=== PATIENT | female | born 1955 | race Caucasian/White ===

== ENCOUNTER 2016-11-26 09:36 | Emergency (ER) | payer OTHER, MEDICARE ==
[~2016-11-26] VITALS: Ht 167.6 cm; Wt 113.4 kg
[~2016-11-26 09:36] MED LIST: ALPR0.25 PO; CYCL10TA45 PO; DICY10CA26 PO; HYDR-2890 PO; IBUP200T48 PO; PROM12.59 PO; PROP40TA5 PO; PROP80TA3 PO; PS30T PO; STR51SU12 PR
--- OUTSIDE RECORDS SUMMARY | 2016-11-26 09:42 | XMS REPORT | Continuity of Care Document ---
Author Author [facility] Organization [facility] Address Unknown Phone Unavailable Allergies Active Description Code Type Severity Reaction Onset Reported/Identified Relationship to Patient Clinical Status Yes Tetanus Vaccines Toxoid [id number] Drug Allergy Unknown N /A 04/16/2014 Medications Problems Date Dx Coded Attending Type Code Diagnosis Diagnosed By 04/16/2014 DASIA SMITH MD Ot 278.01 04/16/2014 DASIA SMITH MD Ot 305.1 04/16/2014 DASIA SMITH MD Ot 338.29 04/16/2014 DASIA SMITH MD Ot 401.9 04/16/2014 DASIA SMITH MD Ot 455.8 04/16/2014 DASIA SMITH MD Ot 564.00 04/16/2014 DASIA SMITH MD Ot 724.5 04/16/2014 DASIA SMITH MD Ot 780.60 04/16/2014 DASIA SMITH MD Ot 787.01 04/16/2014 DASIA SMITH MD Ot 789.03 04/16/2014 DASIA SMITH MD Ot 789.04 04/16/2014 DASIA SMITH MD Ot V58.69 04/16/2014 DASIA SMITH MD Ot V85.41 Procedures Results Encounters ACCT No. Visit Date/Time Discharge Status Pt. Type Provider Facility Loc./Unit Complaint [id number] 11/01/2014 11:01:00 2014 23:59:59 CLS Preadmit CINDI VAUGHN MD [facility] REHAB [id number] 04/16/2014 14:50:00 2013 17:37:00 DIS Emergency DASIA SMITH MD [facility] ER [id number] 03/16/2013 13:55:00 2012 23:59:59 [facility] Outpatient
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
--- NOTE | 2016-11-26 12:07 | Diagnostic Imaging Report ---
LUMBAR SPINE - 2-3 VIEWS COMPARISON: CT abdomen and pelvis from 04/16/2014. INDICATION: Low back pain. TECHNIQUE: AP, lateral, and coned-down lateral views of the lumbar spine. FINDINGS: Lumbar spine is normal in alignment. Specifically, no significant spondylolisthesis. Vertebral bodies are normal in height without fracture. Multilevel mild degenerative disc space narrowing with anterior marginal osteophytes. Mild degenerative facet disease at L4-L5. SI joints are normal without ankylosis or marginal erosions. IMPRESSION: 1. No acute fracture in the lumbar spine. 2. Mild lumbar spondylosis. Dictated by: Dictated on workstation # [id number]
[2016-11-26 12:18] VITALS: BP 168/70
== END 2016-11-26 12:18 | disposition home or self-care (01) ==
LOC: EDUNIT# 09:36 → ER 09:38
DX: S39.012A Strain of muscle, fascia and tendon of lower back, initial encounter (principal); E66.01 Morbid (severe) obesity due to excess calories; F17.210 Nicotine dependence, cigarettes, uncomplicated; V43.52XA Car driver injured in collision with other type car in traffic accident, initial encounter; Z79.899 Other long term (current) drug therapy; Y92.414 Local residential or business street as the place of occurrence of the external cause; Y99.8 Other external cause status
CPT/HCPCS: 72100; 99282

== ENCOUNTER → 2016-12-02 | Outpatient (CLI) | payer MEDICARE ==
[~2016-12-02] MED LIST changes: +CATHETER FLUSH 10 ML SYR IV PRN; +IOHEXOL 350 MG/ML 100 ML (OMNIPAQUE 350) VIAL IV ONE; +NS 100 ML (IVPB) BAG IV ONE
--- OUTSIDE RECORDS SUMMARY | 2016-12-02 10:05 | XMS REPORT | Continuity of Care Document ---
Author Author [facility] Organization [facility] Address Unknown Phone Unavailable Care Team Providers Care Community Recreation Coordinator Name Role Phone NO, LOCAL PHYSICIAN PCP Unavailable Insurance Providers Payer Name Policy Number Subscriber Name Relationship [employer] Choice [id number] Madhuri Coronado 19 Self / Same As Patient Advance Directives Directive Response Recorded Date/Time Advance Directives No 11/26/16 9:55am Health Care Power of Track Dresser No 11/26/16 9:55am Organ Donor No 11/26/16 9:55am Resuscitation Status Full Code 11/26/16 9:55am Chief Complaint and Reason for Visit Chief Complaint Trauma-Non Activation Reason for Visit Muscle strain Problems Active Problems Medical Problem Onset Date Status Constipation Unknown Acute Hemorrhoids Unknown Acute Muscle strain Unknown Acute Medications Current Home Medications Medication Dose Units Route Directions Days/Qty Instructions Start Date Propranolol Hcl 80 Mg 1 Each Oral Daily 04/16/14 Propranolol Hcl 40 Mg 1 Each Oral @ Noon And Pm 04/16/14 Hydrocodone Bit/Acetaminophen 1 Each 1 Each Oral As Directed as needed for Pain 04/16/14 Alprazolam 0.25 Mg 0.25 Mg Oral Bedtime 04/16/14 Ibuprofen 200 Mg 400 Mg Oral Twice A Day 04/16/14 Pseudoephedrine Hcl 30 Mg 1 Tab Oral Daily as needed for Congestion 04/16/14 Promethazine Hcl 12.5 Mg 25 Mg Oral As Needed as needed for Nausea/ Vomiting 04/16/14 Dicyclomine Hcl 10 Mg 1 Each Oral Three Times A Day And Prn 04/16/14 Cyclobenzaprine Hcl 10 Mg 10 Mg Oral Three Times A Day as needed for P 04/16/14 Starch 1 Ea 1 Ea Rectal Daily as needed for Hemorrhoids 14 04/16/14 Social History Social History Problem Response Recorded Date/Time Alcohol Use Denies Use 04/16/2014 3:01pm Recreational Drug Use No 04/16/2014 3:01pm Recent Foreign Travel No 11/26/2016 9:51am Recent Infectious Disease Exposure No 11/26/2016 9:51am Smoking Status Current Everyday Smoker 11/26/2016 9:55am Type Used Cigarettes 11/26/2016 9:55am Recent Hopitalizations No 11/26/2016 9:55am Query Response Start Date Stop Date Smoking Status Current Everyday Smoker Hospital Discharge Instructions No hospital discharge instructions. Plan of Care Discharge Date 11/26/16 12:18pm Disposition 01 HOME, SELF-CARE Condition at Discharge Stable Instructions/Education Provided Lumbar Muscle Strain Prescriptions See Medication Section Referrals NO,LOCAL PHYSICIAN - Primary Care Physician Additional Instructions/Education 1. Continue your current medications 2. Return to ER for any worsening 3.All discharge instructions reviewed with patient and/or family. Voiced understanding. Functional Status No functional status results. Allergies, Adverse Reactions, Alerts Allergen Type Severity Reaction Status Last Updated Tetanus Vaccines & Toxoid ([id number]) Allergy Unknown Active 04/16/14 Immunizations No immunization records. Vital Signs Acute Vital Signs Vital Response Date/Time Temperature (Fahrenheit) 97.4 degrees F (97.6 - 99.5) 11/26/2016 9:51am Temperature (Calculated Celsius) 36.29558 degrees C (36.4 - 37.5) 11/26/2016 9:51am Temperature Source Temporal 11/26/2016 9:51am Pulse Rate (adult) 58 bpm (60 - 90) 11/26/2016 9:51am Respiratory Rate 18 bpm (12 - 24) 11/26/2016 9:51am O2 Sat by Pulse Oximetry 99 % (88 - 100) 11/26/2016 9:51am Blood Pressure 172/75 mm Hg 11/26/2016 9:51am Blood Pressure Mean 107 mm Hg 11/26/2016 9:51am Pain Numeric Pain Scale 6 11/26/2016 9:51am Height (Feet) 5 feet 11/26/2016 9:51am Height (Inches) 6 inches 11/26/2016 9:51am Height (Calculated Centimeters) 167.462123 cm 11/26/2016 9:51am Weight (Pounds) 250 pounds 11/26/2016 9:51am Weight (Calculated Grams) 596844.094 gm 11/26/2016 9:51am Weight (Calculated Kilograms) 113.303089 kilograms 11/26/2016 9:51am Calculated BMI 40.35 11/26/2016 9:51am Capillary Refill Capillary Refill Less Than 3 Seconds 11/26/2016 9:51am Results No known relevant diagnostic tests, laboratory data and/or discharge summary. Procedures No known history of procedures. Encounters Encounter Location Arrival/Admit Date Discharge/Depart Date Attending Provider Departed Emergency Room [facility] 11/26/16 9:38am 11/26 12:18pm CHANA NORIEGA APRN Recent Diagnosis
--- NOTE | 2016-12-02 11:57 | Diagnostic Imaging Report ---
PROCEDURE: CT abdomen and pelvis with and without contrast. TECHNIQUE: Precontrast acquisitions were acquired through the abdomen and pelvis. Multiple contiguous axial images were obtained through the abdomen and pelvis after the administration of intravenous contrast. INDICATION: Hypertension. FINDINGS: The previous CT abdomen/pelvis exam of 04/16/2014 failed to show any sign of an acute abnormality of the abdomen or pelvis. The previous exam did note a low-density nodule associated with the right adrenal gland and two low-density nodules arising from the left adrenal gland. Those findings are again evident on this study and do not seem to have changed. Consequently I do feel that the adrenal nodules are benign and most likely these represent adrenal adenomas. The previous study also showed atherosclerotic disease of the abdominal aorta. The aorta is not aneurysmally dilated and there is no sign of a hemodynamically significant stenosis involving the origins of any of the major branches of the aorta including the renal arteries. The left kidney is larger than the right measuring 11.4 cm in length while the right kidney is estimated to be 9.2 cm. The discrepancy between the size of the kidneys however is no different than on the prior study. There is no solid renal mass identified and there is no sign of hydronephrosis. There is no evidence for nephrolithiasis either. The liver, spleen, pancreas, and inferior vena cava are unremarkable for an acute abnormality. As noted on the prior exam, the gallbladder is surgically absent and the common bile duct near its entry into the head of the pancreas is dilated measuring 16 mm. Most likely the dilatation of common bile duct is a sequela of the patient's prior surgical procedure. The stomach is not well distended and consequently difficult to assess. The uterus and urinary bladder are grossly unremarkable. There are few diverticula in the sigmoid colon, but there is no evidence for acute diverticulitis. The appendix is visualized and is not abnormally thickened. As noted on the prior exam there is a fair amount of fecal material throughout the ascending and transverse colon. The images through lung bases show that the lungs are clear. The calcified granuloma in the right lung base seen previously is again evident. The heart is mildly enlarged. The bone windows are unremarkable for a fracture or for a destructive lesion. IMPRESSION: 1. There is no acute abnormality of the abdomen or pelvis. 2. The low-density nodules associated with the adrenal glands seen previously are again evident and no different. Most likely these are adrenal adenomas. 3. There is atherosclerotic disease involving the aorta, but there is no evidence for an aneurysm of the aorta and there is no sign of a hemodynamically significant stenosis of the renal arteries to account for the patient's hypertension. Dictated by: Dictated on workstation # [id number]
--- NOTE | 2016-12-02 12:50 | Diagnostic Imaging Report ---
Bilateral renal ultrasound. INDICATION: Adrenal adenomas. FINDINGS: The CT abdomen/pelvis exam performed in conjunction with this study did show low-density nodules associated with both adrenal glands. These findings appeared stable when compared to the prior CT exam of 04/16/2014 and were felt to be related to adrenal adenomas. Those adenomas cannot be identified with certainty on this exam. Both kidneys were visualized. The right kidney measures 10.1 x 5.0 x 4.8 cm while the left kidney is estimated to be 12.8 x 5.6 [address] examination also suggested that the left kidney was larger than the right. There is no evidence for a solid renal mass or for hydronephrosis of either kidney. The renal cortices are normal in thickness and echogenicity. The bladder was not imaged during the course of the exam. IMPRESSION: 1. There is no evidence for a solid renal mass or for acute abnormality of either kidney. The left kidney is somewhat larger than the right. 2. The adrenal adenomas seen on the CT exam could not be identified on this study. Dictated by: Dictated on workstation # [id number]
== END ==
LOC: RAD 10:00
PROVIDERS: ATTEND Nurse Practitioner Family
DX: D35.01 Benign neoplasm of right adrenal gland (principal); D35.02 Benign neoplasm of left adrenal gland
CPT/HCPCS: 74178; 76770

== ENCOUNTER 2018-03-28 12:18 | Emergency (ER) | payer MEDICARE ==
[~2018-03-28] VITALS: Ht 167.6 cm; Wt 93.4 kg
[~2018-03-28 12:18] MED LIST changes: -CATHETER FLUSH 10 ML SYR IV PRN; -IOHEXOL 350 MG/ML 100 ML (OMNIPAQUE 350) VIAL IV ONE; -NS 100 ML (IVPB) BAG IV ONE
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
--- NOTE | 2018-03-28 13:02 | ED Cardiac General ---
History of Present Illness General Chief Complaint: Cardiac/General Problems Stated Complaint: BP ISSUES Nursing Triage Note: Patient advises her blood pressure has been off for several days. She advises that her PCP added amlodipine in addition to the patients lisinopril wednesday and since she has been expriencing changes in her pulse as well as dizziness and weakness. History of Present Illness Date Seen by Provider: Mar 28, 2018 Time Seen by Provider: 12:58 Initial Comments Patient is a 62-year-old female who presents to the emergency room with complaints of high and low blood pressures, dizziness, lightheadedness. She reports this all started after the addition of amlodipine on Wednesday to her blood pressure regimen. She is also currently taking lisinopril, Inderal, clonidine for blood pressure. She denies chest pain and shortness of breath. 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: No Associated Systoms: Headaches Allergies and Home Medications Allergies Coded Allergies: Tetanus Vaccines and Toxoid (Verified Allergy, Unknown, 04/16/14) Home Medications Alprazolam 0.25 Mg Tablet, 0.25 MG PO HS, (Reported) Cyclobenzaprine Hcl 10 Mg Tablet, 10 MG PO TID PRN for p, (Reported) Dicyclomine Hcl 10 Mg Capsule, 1 EACH PO TID PRN, (Reported) Hydrocodone Bit/Acetaminophen 1 Each Tablet, 1 EACH PO UD PRN for PAIN, ( Reported) Ibuprofen 200 Mg Tablet, 400 MG PO BID, (Reported) Promethazine Hcl 12.5 Mg Tablet, 25 MG PO PRN PRN for NAUSEA/VOMITING, (Reported ) Propranolol Hcl 80 Mg Tablet, 1 EACH PO DAILY, (Reported) Propranolol Hcl 40 Mg Tablet, 1 EACH PO @ noon and pm, (Reported) Pseudoephedrine Hcl 30 Mg Tab, 1 TAB PO DAILY PRN for CONGESTION, (Reported) Starch 1 Ea Supp, 1 EA PA DAILY PRN for HEMORRHOIDS Prescribed by: DASIA SMITH on 04/16/14 1618 Patient Home Medication List Home Medication List Reviewed: Yes Review of Systems Constitutional: see HPI; No diaphoresis, No weakness EENTM: See HPI; No Blurred Vision, No Double Vision Respiratory: See HPI; Denies Shortness of Air, Denies SOA With Exertion, Denies SOA at Rest, Denies Wheezing Cardiovascular: See HPI, Lightheadedness, Palpitations Gastrointestinal: See HPI; Denies Abdominal Pain, Denies Diarrhea, Denies Nausea, Denies Vomiting Genitourinary: See HPI; Denies Burning, Denies Discharge Musculoskeletal: see HPI; No back pain, No muscle pain Skin: see HPI; No change in color, No change in hair/nails Psychiatric/Neurological: See HPI; Denies Anxiety, Denies Depressed Endocrine: See HPI; Denies Excessive Sweating, Denies Flushing Hematologic/Lymphatic: See HPI; Denies Anemia All Other Systems Reviewed Negative Unless Noted: Yes Past Zccaezz-Lvplsl-Dwhhbp Hx Past Med/Social Hx: Reviewed Nursing Past Med/Soc Hx Patient Social History Alcohol Use: Occasionally Uses Recreational Drug Use: No Type Used: Cigarettes Recent Foreign Travel: No Contact w/Someone Who Travel: No Recent Infectious Disease Expo: No Recent Hopitalizations: No Physical Abuse: No Sexual Abuse: No Immunizations Up To Date Date of Influenza Vaccine: Aug 10, 2016 Past Medical History Surgeries: Yes (ARM SURGERY,ULNAR NERVE SURGERY L-ARM) Appendectomy, Gallbladder, Tonsillectomy Respiratory: No Cardiac: Yes Hypertension Neurological: Yes Headaches /Migraines, TIA Reproductive Disorders: No Gastrointestinal: No Musculoskeletal: Yes Chronic Back Pain Endocrine: No (MORBID OBESITY IN WEIGHT LOSS PLAN) Adrenal Disease Cancer: No Psychosocial: No Nursing Suicide Risk Score: 0 Integumentary: No Blood Disorders: No Family Medical History Reviewed Nursing Family Hx Physical Exam Vital Signs Vital Signs - First Documented 03/28/18 12:40 Pulse 67 Resp 14 B/P (MAP) 182/88 (119) Pulse Ox 98 O2 Delivery Room Air Capillary Refill : Less Than 3 Seconds General Appearance: No Apparent Distress, WD/WN HEENT: TMs Normal, Normal ENT Inspection, Pharynx Normal Neck: Full Range of Motion, Normal Inspection, Non Tender Respiratory: Chest Non Tender, Lungs Clear, Normal Breath Sounds Cardiovascular: Regular Rate, Rhythm, No Edema, No Gallop, No JVD, No Murmur; No Bradycardia Gastrointestinal: Normal Bowel Sounds, Non Tender, Soft Extremity: Normal Capillary Refill, Normal Range of Motion, No Calf Tenderness , No Pedal Edema Neurologic/Psychiatric: Alert, Oriented x3, Normal Mood/Affect Skin: Normal Color, Warm/Dry Lymphatic: No Adenopathy Progress/Results/Core Measures Results/Orders Lab Results Laboratory Tests Test 03/28/18 13:09 Range/Units White Blood Count 5.7 4.3-11.0 10^3/uL Red Blood Count 5.23 4.35-5.85 10^6/uL Hemoglobin 16.9 H 11.5-16.0 G/DL Hematocrit 49 35-52 % Mean Corpuscular Volume 93 80-99 FL Mean Corpuscular Hemoglobin 32 25-34 PG Mean Corpuscular Hemoglobin Concent 35 32-36 G/DL Red Cell Distribution Width 14.1 10.0-14.5 % Platelet Count 215 130-400 10^3/uL Mean Platelet Volume 9.8 7.4-10.4 FL Neutrophils (%) (Auto) 49 42-75 % Lymphocytes (%) (Auto) 41 12-44 % Monocytes (%) (Auto) 8 0-12 % Eosinophils (%) (Auto) 2 0-10 % Basophils (%) (Auto) 1 0-10 % Neutrophils # (Auto) 2.8 1.8-7.8 X 10^3 Lymphocytes # (Auto) 2.4 1.0-4.0 X 10^3 Monocytes # (Auto) 0.5 0.0-1.0 X 10^3 Eosinophils # (Auto) 0.1 0.0-0.3 10^3/uL Basophils # (Auto) 0.1 0.0-0.1 10^3/uL Sodium Level 140 135-145 MMOL/L Potassium Level 4.1 3.6-5.0 MMOL/L Chloride Level 108 H 98-107 MMOL/L Carbon Dioxide Level 24 21-32 MMOL/L Anion Gap 8 5-14 MMOL/L Blood Urea Nitrogen 10 7-18 MG/DL Creatinine 0.84 0.60-1.30 MG/DL Estimat Glomerular Filtration Rate > 60 BUN/Creatinine Ratio 12 Glucose Level 92 70-105 MG/DL Calcium Level 9.1 8.5-10.1 MG/DL Total Bilirubin 0.5 0.1-1.0 MG/DL Aspartate Amino Transf (AST/SGOT) 13 5-34 U/L Alanine Aminotransferase (ALT/SGPT) 11 0-55 U/L Alkaline Phosphatase 43 40-136 U/L Total Protein 6.1 L 6.4-8.2 GM/DL Albumin 3.6 3.2-4.5 GM/DL My Orders Orders - CHANA NORIEGA APRN Cbc With Automated Diff (03/28/18 12:57) Comprehensive Metabolic Panel (03/28/18 12:57) Ekg Tracing (03/28/18 12:57) Vital Signs/I&O 03/28/18 12:40 Pulse 67 Resp 14 B/P (MAP) 182/88 (119) Pulse Ox 98 O2 Delivery Room Air Blood Pressure Mean: 119 Departure Impression Primary Impression: Labile hypertension Disposition: 01 HOME, SELF-CARE Condition: Stable/Unchanged Departure-Patient Inst. Decision time for Depature: 13:52 Referrals: SARA YA (PCP) Primary Care Physician Patient Instructions: High Blood Pressure (DC) Add. Discharge Instructions: Stop your amlodipine. Take your new prescription hydrochlorothiazide as directed. Continue all your other medications as directed. Return to the emergency room for hypertension, chest pain, shortness of breath, or any other concerns as needed. follow-up with your doctor within 1 week for recheck call today for an appointment time. All discharge instructions reviewed with patient and/or family. Voiced understanding. Scripts Hydrochlorothiazide (Hydrochlorothiazide) 12.5 Mg Tablet 12.5 MG PO DAILY, #30 TAB Prov: CHANA NORIEGA APRN 03/28/18 CHANA NORIEGA APRN Mar 28, 2018 13:02
[2018-03-28 13:28] LABS: BASOPHILS # (AUTO) 0.1 10^3/uL (0.0-0.1); BASOPHILS % (AUTO) 1 % (0-10); EOSINOPHILS # (AUTO) 0.1 10^3/uL (0.0-0.3); EOSINOPHILS % (AUTO) 2 % (0-10); HEMATOCRIT 49 % (35-52); HEMOGLOBIN 16.9 G/DL (11.5-16.0); LYMPHOCYTES # (AUTO) 2.4 X 10^3 (1.0-4.0); LYMPHOCYTES % (AUTO) 41 % (12-44); MEAN CORPUSCULAR HEMOGLOBIN 32 PG (25-34); MEAN CORPUSCULAR HGB CONC 35 G/DL (32-36); MEAN CORPUSCULAR VOLUME 93 FL (80-99); MEAN PLATELET VOLUME 9.8 FL (7.4-10.4); MONOCYTES # (AUTO) 0.5 X 10^3 (0.0-1.0); MONOCYTES % (AUTO) 8 % (0-12); NEUTROPHILS # (AUTO) 2.8 X 10^3 (1.8-7.8); NEUTROPHILS % (AUTO) 49 % (42-75); PLATELET COUNT 215 10^3/uL (130-400); RED BLOOD COUNT 5.23 10^6/uL (4.35-5.85); RED CELL DISTRIBUTION WIDTH 14.1 % (10.0-14.5); WHITE BLOOD COUNT 5.7 10^3/uL (4.3-11.0)
[2018-03-28 13:45] LABS: ALANINE AMINOTRANSFERASE 11 U/L (0-55); ALBUMIN 3.6 GM/DL (3.2-4.5); ALKALINE PHOSPHATASE 43 U/L (40-136); BILIRUBIN,TOTAL 0.5 MG/DL (0.1-1.0); BUN/CREATININE RATIO 12; CALCIUM 9.1 MG/DL (8.5-10.1); CARBON DIOXIDE 24 MMOL/L (21-32); CHLORIDE 108 MMOL/L (98-107); CREATININE SERUM 0.84 MG/DL (0.60-1.30); GFR ESTIMATED > 60; GLUCOSE 92 MG/DL (70-105); POTASSIUM 4.1 MMOL/L (3.6-5.0); SODIUM 140 MMOL/L (135-145); TOTAL PROTEIN 6.1 GM/DL (6.4-8.2)
[2018-03-28] MEDS ORDERED: HYDR12.56 PO ×3 (13:58→14:02)
[2018-03-28 14:08] VITALS: BP 169/74
== END 2018-03-28 14:07 | disposition home or self-care (01) ==
LOC: EDUNIT# 12:18 → ER 12:22
DX: I10 Essential (primary) hypertension (principal); G43.909 Migraine, unspecified, not intractable, without status migrainosus; E66.01 Morbid (severe) obesity due to excess calories; Z86.39 Personal history of other endocrine, nutritional and metabolic disease; Z90.49 Acquired absence of other specified parts of digestive tract; Z90.89 Acquired absence of other organs; Z88.7 Allergy status to serum and vaccine; Z86.73 Personal history of transient ischemic attack (TIA), and cerebral infarction without residual deficits
CPT/HCPCS: 36415; 80053; 85025; 93005

== ENCOUNTER 2021-07-01 18:21 | Emergency (ER) | payer MEDICARE, OTHER ==
[~2021-07-01] VITALS: Ht 165 cm; Wt 95.0 kg
[~2021-07-01 18:21] MED LIST changes: +HYDR12.56 PO
--- NOTE | 2021-07-01 18:52 | ED Neurological Problem ---
General Chief Complaint: Neuro-Stroke Like Symptoms Stated Complaint: POSS STROKE PER PCP/TROUBLE SPEAKING Nursing Triage Note: TROUBLE WALKING AND SPEAKING X2 DAYS. STATES SHE CALLED HER DR WHO TOLD HER TO COME TO THE ER. Source: patient Exam Limitations: no limitations History of Present Illness Date Seen by Provider: Jul 01, 2021 Time Seen by Provider: 18:24 Initial Comments This 65-year-old woman presents to the emergency room via private vehicle at the direction of her primary care provider for reasons of strokelike symptoms that started on June 27. She reports a difficulty with word finding and sentence formation as well as some slightly slurred speech. She also reports difficulty walking due to weakness of her lower extremities and balance difficulties. She reports frequent falls recently. She reports a fall in which she struck her head 2 or 3 weeks ago. She also reports starting a cholesterol medication about 1 week ago. She denies any prior episodes of similar symptoms. Stroke activation was not paged since symptoms started 5 days ago. NIH stroke score was 8 on initial presentation. She does appear to have some slight left- sided facial droop and her lower extremities are weak. She denies any pain. She denies symptoms of acute infectious illness such as fever, myalgia, cough, shortness of breath, vomiting, or diarrhea. She denies drug or alcohol use. She is a former smoker. She did receive both Covid vaccinations. Allergies and Home Medications Allergies Coded Allergies: Tetanus Vaccines and Toxoid (Verified Allergy, Unknown, 04/16/14) Patient Home Medication List Home Medication List Reviewed: Yes Alprazolam (Xanax) 0.25 Mg Tablet, 0.25 MG PO HS, (Reported) Entered as Reported by: CESAR TORO on 04/16/141553 Cephalexin (Cephalexin) 500 Mg Tablet, 500 MG PO TID Prescribed by: ANTONETTE GUALLPA on 07/01/212024 Cyclobenzaprine Hcl (Flexeril Tablet) 10 Mg Tablet, 10 MG PO TID PRN for p, (Reported) Entered as Reported by: CESAR TORO on 04/16/141553 Dicyclomine Hcl (Bentyl) 10 Mg Capsule, 1 EACH PO TID PRN, (Reported) Entered as Reported by: CESAR TORO on 04/16/141553 Hydrochlorothiazide (Hydrochlorothiazide) 12.5 Mg Tablet, 12.5 MG PO DAILY Prescribed by: CHANA NORIEGA on 03/28/18 2236 Hydrochlorothiazide (Hydrochlorothiazide) 12.5 Mg Tablet, 12.5 MG PO DAILY Prescribed by: CHANA NORIEGA on 03/31/18 1024 Hydrochlorothiazide (Hydrochlorothiazide) 12.5 Mg Tablet, 12.5 MG PO DAILY Prescribed by: CHANA NORIEGA on 03/28/18 1402 Hydrocodone Bit/Acetaminophen (Hydrocodon-Acetaminophn 10-325) 1 Each Tablet, 1 EACH PO UD PRN for PAIN, (Reported) Entered as Reported by: CESAR TORO on 04/16/14 155 Ibuprofen (Ibuprofen) 200 Mg Tablet, 400 MG PO BID, (Reported) Entered as Reported by: CESAR TORO on 04/16/141553 Promethazine Hcl (Phenergan) 12.5 Mg Tablet, 25 MG PO PRN PRN for NAUSEA/VOMITING, (Reported) Entered as Reported by: CESAR TORO on 04/16/141553 Propranolol Hcl (Inderal) 80 Mg Tablet, 1 EACH PO DAILY, (Reported) Entered as Reported by: CESAR TORO on 04/16/141553 Propranolol Hcl (Inderal) 40 Mg Tablet, 1 EACH PO @ noon and pm, (Reported) Entered as Reported by: CESAR TORO on 04/16/141553 Pseudoephedrine Hcl (Sudafed) 30 Mg Tab, 1 TAB PO DAILY PRN for CONGESTION, (Reported) Entered as Reported by: CESAR TORO on 04/16/141553 Starch (Anusol Supp) 1 Ea Supp, 1 EA AK DAILY PRN for HEMORRHOIDS Prescribed by: DASIA SMITH on 04/16/14 1726 Review of Systems Review of Systems Constitutional: no symptoms reported Eyes: No Symptoms Reported Ears, Nose, Mouth, Throat: no symptoms reported Respiratory: no symptoms reported Cardiovascular: no symptoms reported Gastrointestinal: no symptoms reported Genitourinary: no symptoms reported : No Musculoskeletal: see HPI Skin: no symptoms reported Psychiatric/Neurological: See HPI Endocrine: No Symptoms Reported Hematologic/Lymphatic: No Symptoms Reported Past Fhkhihg-Tdjjio-Vvttgf Hx Patient Social History Tobacco Use?: No Smoking Status: Former Smoker Substance use?: No Alcohol Use?: No Immunizations Up To Date COVID19 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: [employer] Past Medical History Surgeries: Yes (ARM SURGERY,ULNAR NERVE SURGERY L-ARM) Appendectomy, Gallbladder, Tonsillectomy Respiratory: No Cardiac: Yes High Cholesterol, Hypertension Neurological: Yes Headaches /Migraines, TIA Reproductive Disorders: No Genitourinary: No Gastrointestinal: No Musculoskeletal: Yes Chronic Back Pain Endocrine: Yes (MORBID OBESITY IN WEIGHT LOSS PLAN) Adrenal Disease Cancer: No Psychosocial: No Integumentary: No Blood Disorders: No Physical Exam Vital Signs Vital Signs - First Documented 07/01/21 07/01/21 18:25 19:12 Temp 37.3 Pulse 61 Resp 16 B/P (MAP) 181/81 (114) Pulse Ox 96 O2 Delivery Room Air O2 Flow Rate 2.00 FiO2 97 Capillary Refill : Less Than 3 Seconds Height, Weight, BMI Height: 5'6.00" Weight: 206lbs. oz. 93.844395rc; 34.00 BMI Method:Stated General Appearance: WD/WN, no apparent distress, obese HEENT: PERRL/EOMI, normal ENT inspection, TMs normal Neck: non-tender, normal inspection Respiratory: lungs clear, normal breath sounds, no respiratory distress Cardiovascular: regular rate, rhythm, no edema, no murmur Gastrointestinal: normal bowel sounds, non tender, soft Extremities: non-tender, normal inspection, no pedal edema Neurologic/Psychiatric: alert, normal mood/affect, oriented x 3 Crainal Nerves: PERRL, abnormal speech, facial asymmetry (Subtle left-sided facial weakness) Coordination/Gait: normal finger to nose, other (Slow, deliberate gait) Motor/Sensory: sensory deficit (Identified touch on the right ankle as left arm), weak motor strength RLE, weak motor strength LLE Skin: normal color, warm/dry Stroke NIH Stroke Scale Assessment Level of Consciousness: 0=Alert (0), Level of Consciousness-Questions: 0=Answers both month/age (0), LOC Commands: 0=Performs both tasks (0), Visual [place]: 0=No visual loss (0), Facial Movement (Facial Paresis): 1=Minor paralysis (1), Motor Function-Arms Right: 0=No drift (0), Motor Function-Arms Left: 0=No drift (0), Motor Function-Legs Right: 2=Some effort/gravity (2), Motor Function-Legs Left: 2=Some effort/gravity (2), Limb Ataxia: 0=Absent (0), Sensory: 0=Normal:no loss (0), Best Language: 1=Mild to moderat aphasia (1), Dysarthria: 1=Mild to moderate loss (1), Extinction & Inattention: 1=Visual,tactile,auditory (1), Total: 8 Progress/Results/Core Measures Results/Orders Lab Results Laboratory Tests Test 07/01/21 18:08 07/01/21 18:26 07/01/21 19:05 Range/Units Total Creatine Kinase 158 29-168 U/L White Blood Count 6.9 4.3-11.0 10^3/uL Red Blood Count 4.64 3.80-5.11 10^6/uL Hemoglobin 16.2 H 11.5-16.0 g/dL Hematocrit 49 35-52 % Mean Corpuscular Volume 106 H 80-99 fL Mean Corpuscular Hemoglobin 35 H 25-34 pg Mean Corpuscular Hemoglobin Concent 33 32-36 g/dL Red Cell Distribution Width 14.3 10.0-14.5 % Platelet Count 241 130-400 10^3/uL Mean Platelet Volume 9.9 9.0-12.2 fL Immature Granulocyte % (Auto) 0 % Neutrophils (%) (Auto) 46 42-75 % Lymphocytes (%) (Auto) 41 12-44 % Monocytes (%) (Auto) 9 0-12 % Eosinophils (%) (Auto) 4 0-10 % Basophils (%) (Auto) 1 0-10 % Neutrophils # (Auto) 3.1 1.8-7.8 10^3/uL Lymphocytes # (Auto) 2.8 1.0-4.0 10^3/uL Monocytes # (Auto) 0.6 0.0-1.0 10^3/uL Eosinophils # (Auto) 0.3 0.0-0.3 10^3/uL Basophils # (Auto) 0.1 0.0-0.1 10^3/uL Immature Granulocyte # (Auto) 0.0 0.0-0.1 10^3/uL Prothrombin Time 13.2 12.2-14.7 SEC INR Comment 1.0 0.8-1.4 Activated Partial Thromboplast Time 43 H 24-35 SEC D-Dimer 1.21 H 0.00-0.49 UG/ML Sodium Level 139 135-145 MMOL/L Potassium Level 4.5 3.6-5.0 MMOL/L Chloride Level 104 98-107 MMOL/L Carbon Dioxide Level 24 21-32 MMOL/L Anion Gap 11 5-14 MMOL/L Blood Urea Nitrogen 14 7-18 MG/DL Creatinine 1.37 H 0.60-1.30 MG/DL Estimat Glomerular Filtration Rate 39 BUN/Creatinine Ratio 10 Glucose Level 90 70-105 MG/DL Glucometer 86 70-110 MG/DL Calcium Level 9.5 8.5-10.1 MG/DL Corrected Calcium 9.5 8.5-10.1 MG/DL Total Bilirubin 0.8 0.1-1.0 MG/DL Aspartate Amino Transf (AST/SGOT) 34 5-34 U/L Alanine Aminotransferase (ALT/SGPT) 27 0-55 U/L Alkaline Phosphatase 33 L 40-136 U/L Troponin I < 0.028 <0.028 NG/ML B-Type Natriuretic Peptide 30.8 <100.0 PG/ML Total Protein 7.1 6.4-8.2 GM/DL Albumin 4.0 3.2-4.5 GM/DL Urine Color YELLOW Urine Clarity CLEAR Urine pH 6.0 5-9 Urine Specific [place] 1.025 H 1.016-1.022 Urine Protein NEGATIVE NEGATIVE Urine Glucose (UA) NEGATIVE NEGATIVE Urine Ketones NEGATIVE NEGATIVE Urine Nitrite NEGATIVE NEGATIVE Urine Bilirubin NEGATIVE NEGATIVE Urine Urobilinogen 0.2 < = 1.0 MG/DL Urine Leukocyte Esterase 1+ H NEGATIVE Urine RBC (Auto) NEGATIVE NEGATIVE Urine RBC NONE /HPF Urine WBC 5-10 H /HPF Urine Squamous Epithelial Cells 5-10 /HPF Urine Crystals NONE /LPF Urine Bacteria MODERATE H /HPF Urine Casts NONE /LPF Urine Mucus NEGATIVE /LPF Urine Culture Indicated YES My Orders Orders - ANTONETTE IBRAHIM MD Cbc With Automated Diff (07/01/21 18:40) Protime With Inr (07/01/21 18:40) Partial Thromboplastin Time (07/01/21 18:40) Comprehensive Metabolic Panel (07/01/21 18:40) Fibrin Degradation Products (07/01/21 18:40) Troponin I (07/01/21 18:40) Ua Culture If Indicated (07/01/21 18:40) Chest 1 View, Ap/Pa Only (07/01/21 18:40) Ekg Tracing (07/01/21 18:40) Nothing By Mouth (07/01/21 Dinner) Ed Iv/Invasive Line Start (07/01/21 18:40) Vital Signs Stroke Patient Q15M (07/01/21 18:40) O2 (07/01/21 18:40) Monitor-Rhythm Ecg Trace Only (07/01/21 18:40) Dysphagia Screening Tool (07/01/21 18:40) Lipid Panel (07/02/21 06:00) Creatine Kinase (07/01/21 18:52) Ct Head Wo-R/O Stroke (07/01/21 19:03) Ns Iv 1000 Ml (Sodium Chloride 0.9%) (07/01/21 19:15) Urine Culture (07/01/21 19:05) BNP (07/01/21 19:38) Ceftriaxone (Rocephin) (07/01/21 20:15) Aspirin Tablet (Aspirin Tablet) (07/01/21 20:15) Medications Given in ED Current Medications Medications Dose Ordered Sig/Gail Route Start Time Stop Time Status Last Admin Dose Admin Aspirin 325 mg ONCE ONCE PO 07/01/21 20:15 07/01/21 20:16 DC 07/01/21 20:18 325 MG Ceftriaxone Sodium 1000 mg/ Sterile Water 10 ml @ 200 mls/hr ONCE ONCE IV 07/01/21 20:15 07/01/21 20:17 DC 07/01/21 20:18 200 MLS/HR Vital Signs/I&O 07/01/21 07/01/21 18:25 19:12 Temp 37.3 Pulse 61 Resp 16 B/P (MAP) 181/81 (114) Pulse Ox 96 88 O2 Delivery Room Air Nasal Cannula O2 Flow Rate 2.00 FiO2 97 Blood Pressure Mean: 114 FSBG Bedside Testing Finger Stick Blood Glucose: 86 Progress Progress Note #1: Time: 18:59 Progress Note Stroke work-up is underway. Stroke activation was not paged given symptoms have been present for 5 days. Progress Note #2: Time: 20:[address] scan was suspicious for right-sided stroke. I discussed the case with Dr. Abbasi, stroke neurologist at [facility]. She was recommending admission for completion of the stroke work-up which would include MRI of the head and MRA of the neck as well as echocardiogram. CT angiogram was not recommended due to patient's current GFR. We also discussed the bilateral lower extremity symptoms in the context of chronic back pain. Evaluation with MRI of the cervical and lumbar spine was recommended to evaluate etiology of this weakness further. Dr. Abbasi also recommended therapy with aspirin. Plan was discussed with the patient. She declines admission at this time and acknowledges the risks involved. She states she has no one to be home with her autistic son and she therefore is requesting to leave AGAINST MEDICAL ADVICE. I did stress the importance of completing this work-up in the outpatient setting and she commits to discussing this with Mackenzie Brown, her PCP in [place], [place]. Patient was stable upon discharge. See discharge instructions for further discussion. Patient did pass her dysphagia screening and was given aspirin prior to discharge. Rocephin was given for treatment of the UTI. Initial ECG Impression Date: Jul 01, 2021 Initial ECG Impression Time: 18:58 Initial ECG Rate: 62 Initial ECG Rhythm: Normal Sinus Comment Sinus rhythm with prolonged AK interval of [address] elevation or depression. No axis deviation. Diagnostic Imaging Diagonstic Imaging: CT Plain Films/CT/US/NM/MRI: head Comments CT head viewed by me and report reviewed. See report below: NAME: REUBEN TERAN [facility] REC#: [id number] PT STATUS: REG ER : 1955 PHYSICIAN: ANTONETTE IBRAHIM MD ADMIT DATE: 07/01/21/ER Draft Date of Exam:07/01/21 CT HEAD WO-R/O STROKE PROCEDURE: CT head wo r/o stroke. TECHNIQUE: Multiple contiguous axial images were obtained through the brain without the use of intravenous contrast. Auto Exposure Controls were utilized during the CT exam to meet ALARA standards for radiation dose reduction. INDICATION: Difficulty walking and speaking There is no previous study for comparison. Ventricles and sulci are within normal limits for size. There is moderate low density within the deep white matter of both hemispheres. This is somewhat greater on the right with focal lucency in the right basal ganglia which could represent nonacute lacunar infarct. There is no abnormal mass effect or shift of midline structures. There is atherosclerotic calcification present within distal internal carotid and vertebral arteries. IMPRESSION: Nonspecific white matter findings are likely due to chronic microvascular ischemia. This is somewhat asymmetric and greater on the right. Consideration could be given to MRI which has greater sensitivity in detecting early infarct. Dictated on workstation # [id number] Dict: 07/01/211926 Trans: 07/01/211931 [facility] [id number] Interpreted by: RICK PALUMBO MD Diagonstic Imaging: Xray Plain Films/CT/US/NM/MRI: chest Comments Chest x-ray viewed by me and report reviewed. See report below: NAME: REUBEN TERAN [facility] REC#: [id number] PT STATUS: REG ER : 1955 PHYSICIAN: ANTONETTE IBRAHIM MD ADMIT DATE: 07/01/21/ER Draft Date of Exam:07/01/21 CHEST 1 VIEW, AP/PA ONLY INDICATION: Cerebrovascular accident AP view of the chest reveals mild cardiomegaly. Pulmonary vascularity is unremarkable. There is no evidence of pneumothorax or consolidation. No definite pleural fluid is seen. IMPRESSION: Cardiomegaly without other acute abnormality detected. Dictated on workstation # [id number] Dict: 07/01/211900 Trans: 07/01/211912 [facility] [id number] Interpreted by: RICK PALUMBO MD Departure Impression Primary Impression: Dysarthria Additional Impressions: Dysphagia Qualified Codes: R13.10 - Dysphagia, unspecified Lower extremity weakness Qualified Codes: R29.898 - Other symptoms and signs involving the musculoskeletal system Weakness on left side of face Urinary tract infection Qualified Codes: N39.0 - Urinary tract infection, site not specified Abnormal CT scan, head Disposition: AGAINST MEDICAL ADVICE Condition: Against Medical Advice Departure-Patient Inst. Decision time for Depature: 20:11 Referrals: SARA YA (PCP) Primary Care Physician Patient Instructions: Right-Side Stroke, Urinary Tract Infections in Adults Add. Discharge Instructions: Your symptoms are suspicious for a recent stroke. After consultation with the stroke neurologist at [facility], admission to the hospital to finish out your work-up is recommended. It is imperative that you see your primary care provider as soon as possible. Further evaluation is required. It is suggested that you pursue MRI of the brain, MRA of the neck, and MRI of the cervical and lumbar spine to further evaluate your symptoms. You should also obtain an echocardiogram. These studies would be performed in the hospital if you were to stay for admission. You should also be evaluated for physical therapy, speech therapy, and occupational therapy services. Complete your antibiotic as prescribed and review urine culture results with your primary care provider after 48 hours. Take aspirin 81 mg daily until otherwise instructed by your doctor. Continue your cholesterol medication as well. Ambulate with extreme caution and use an assistive device such as a cane or walker as needed for safety. Return to the emergency room promptly if you develop any worsening of symptoms. Call with questions or concerns. All discharge instructions reviewed with patient and/or family. Voiced understanding. Scripts Cephalexin (Cephalexin) 500 Mg Tablet 500 MG PO TID, #20 TAB Prov: ANTONETTE IBRAHIM MD 07/01/21 ANTONETTE IBRAHIM MD Jul 01, 2021 18:52
[2021-07-01 18:54] LABS: BASOPHILS # (AUTO) 0.1 10^3/uL (0.0-0.1); BASOPHILS % (AUTO) 1 % (0-10); CHLORIDE 104 MMOL/L (98-107); EOSINOPHILS # (AUTO) 0.3 10^3/uL (0.0-0.3); EOSINOPHILS % (AUTO) 4 % (0-10); HEMATOCRIT 49 % (35-52); HEMOGLOBIN 16.2 g/dL (11.5-16.0); LYMPHOCYTES # (AUTO) 2.8 10^3/uL (1.0-4.0); LYMPHOCYTES % (AUTO) 41 % (12-44); MEAN CORPUSCULAR HEMOGLOBIN 35 pg (25-34); MEAN CORPUSCULAR HGB CONC 33 g/dL (32-36); MEAN CORPUSCULAR VOLUME 106 fL (80-99); MEAN PLATELET VOLUME 9.9 fL (9.0-12.2); MONOCYTES # (AUTO) 0.6 10^3/uL (0.0-1.0); MONOCYTES % (AUTO) 9 % (0-12); NEUTROPHILS # (AUTO) 3.1 10^3/uL (1.8-7.8); NEUTROPHILS % (AUTO) 46 % (42-75); PLATELET COUNT 241 10^3/uL (130-400); POTASSIUM 4.5 MMOL/L (3.6-5.0); SODIUM 139 MMOL/L (135-145); WHITE BLOOD COUNT 6.9 10^3/uL (4.3-11.0)
[2021-07-01 18:55] LABS: CALCIUM 9.5 MG/DL (8.5-10.1)
[2021-07-01 18:56] LABS: GLUCOSE 90 MG/DL (70-105); TOTAL PROTEIN 7.1 GM/DL (6.4-8.2)
[2021-07-01 18:57] LABS: CARBON DIOXIDE 24 MMOL/L (21-32)
[2021-07-01 18:58] LABS: BILIRUBIN,TOTAL 0.8 MG/DL (0.1-1.0)
[2021-07-01 19:00] LABS: ALKALINE PHOSPHATASE 33 U/L (40-136); CREATININE SERUM 1.37 MG/DL (0.60-1.30); GFR ESTIMATED 39
[2021-07-01 19:01] LABS: BUN/CREATININE RATIO 10
[2021-07-01 19:02] LABS: FIBRIN DEGRADATION PRODUCTS 1.21 UG/ML (0.00-0.49); PROTHROMBIN TIME PATIENT 13.2 SEC (12.2-14.7)
[2021-07-01 19:03] LABS: ALANINE AMINOTRANSFERASE 27 U/L (0-55)
[2021-07-01 19:11] LABS: BILIRUBIN,URINE NEGATIVE (NEGATIVE); CLARITY,URINE CLEAR; COLOR,URINE YELLOW; GLUCOSE, URINE (UA) NEGATIVE (NEGATIVE); KETONES,URINE NEGATIVE (NEGATIVE); LEUKOCYTE ESTERASE ,URINE 1+ (NEGATIVE); NITRITE,URINE NEGATIVE (NEGATIVE); PROTEIN,URINE NEGATIVE (NEGATIVE)
--- NOTE | 2021-07-01 19:14 | Diagnostic Imaging Report ---
INDICATION: Cerebrovascular accident AP view of the chest reveals mild cardiomegaly. Pulmonary vascularity is unremarkable. There is no evidence of pneumothorax or consolidation. No definite pleural fluid is seen. IMPRESSION: Cardiomegaly without other acute abnormality detected. Dictated by: Dictated on workstation # [id number]
[2021-07-01] MEDS ORDERED: NS IV 1000 ML 1,000 ML IV SCH (19:15)
[2021-07-01 19:20] LABS: BACTERIA,URINE MODERATE /HPF
--- NOTE | 2021-07-01 19:32 | Diagnostic Imaging Report ---
PROCEDURE: CT head wo r/o stroke. TECHNIQUE: Multiple contiguous axial images were obtained through the brain without the use of intravenous contrast. Auto Exposure Controls were utilized during the CT exam to meet ALARA standards for radiation dose reduction. INDICATION: Difficulty walking and speaking There is no previous study for comparison. Ventricles and sulci are within normal limits for size. There is moderate low density within the deep white matter of both hemispheres. This is somewhat greater on the right with focal lucency in the right basal ganglia which could represent nonacute lacunar infarct. There is no abnormal mass effect or shift of midline structures. There is atherosclerotic calcification present within distal internal carotid and vertebral arteries. IMPRESSION: Nonspecific white matter findings are likely due to chronic microvascular ischemia. This is somewhat asymmetric and greater on the right. Consideration could be given to MRI which has greater sensitivity in detecting early infarct. Dictated by: Dictated on workstation # [id number]
[2021-07-01] MEDS ORDERED: cefTRIAXone 1,000 MG in WATER (STERILE) FOR INJECTION 10 ML IV ONE (20:15)
[2021-07-01] MEDS ORDERED: ASPIRIN 325 MG (5 GR) TABLET PO ONE (20:15)
[2021-07-01 20:25] VITALS: BP 153/64
[2021-07-01] MEDS ORDERED: CEPH500T PO (20:25)
== END 2021-07-01 20:25 | disposition left against medical advice (07) ==
LOC: EDUNIT# 18:21 → ER 18:22
DX: R47.1 Dysarthria and anarthria (principal); R13.10 Dysphagia, unspecified; R53.1 Weakness; N39.0 Urinary tract infection, site not specified; R93.0 Abnormal findings on diagnostic imaging of skull and head, not elsewhere classified; E78.00 Pure hypercholesterolemia, unspecified; E66.01 Morbid (severe) obesity due to excess calories; I10 Essential (primary) hypertension; G89.29 Other chronic pain; M54.9 Dorsalgia, unspecified; Z68.34 Body mass index [BMI] 34.0-34.9, adult; Z87.891 Personal history of nicotine dependence; Z86.73 Personal history of transient ischemic attack (TIA), and cerebral infarction without residual deficits; Z79.891 Long term (current) use of opiate analgesic; Z79.899 Other long term (current) drug therapy
CPT/HCPCS: 36415; 70450; 71045; 80053; 81000; 82550; 82947; 83880; 84484; 85025; 85379; 85610; 85730; 87088; 93005; 93041

== ENCOUNTER 2021-07-13 09:46 | Inpatient (IN) | payer MEDICARE ==
[~2021-07-13] VITALS: Ht 167 cm; Wt 114.7 kg
[~2021-07-13 09:46] MED LIST changes: +CEPH500T PO
--- NOTE | 2021-07-13 10:14 | ED Fall/Injury ---
General Chief Complaint: Neurological Problems Stated Complaint: FALL Source: patient Exam Limitations: no limitations History of Present Illness Date Seen by Provider: Jul 13, 2021 Time Seen by Provider: 09:59 Initial Comments Patient to the ER by EMS from home with chief complaint she had a fall in her kitchen striking back of her head against a cabinetry. She says she just felt weak and tired and short of air. She is felt this way for about 2 weeks now. S he has not been tested for Covid or influenza. She did get [employer] vaccines x2 in December. She is having some chills and borderline temperatures but no fever. She did have a stroke approximately 2 weeks ago. She is not having any nausea chest pain diarrhea constipation abdominal pain. No pain in her hips or legs. No significant pain in her head. Patient had a stroke approximately 2 weeks ago and did not seek medical care at that time. She is also on Keflex presently for UTI outpatient treatment. Stewart french was seen June 27 in the ER with strokelike symptoms difficulty with word finding since formation and some slightly slurred speech. Difficulty walking doing to bilateral lower extremity weakness and balance issues. NIH was initially 8 points. Quit smoking years ago. She does have hypertension and had some slight left-sided facial droop and lower extremity weakness that day. CT suspicious for right-sided stroke. Patient declined admission at that time and went AGAINST MEDICAL ADVICE stating she had to go home and take care of her autistic son. Patient received a dose of Rocephin for UTI and was sent home on Keflex. Allergies and Home Medications Allergies Coded Allergies: Tetanus Vaccines and Toxoid (Verified Allergy, Unknown, 04/16/14) Patient Home Medication List Home Medication List Reviewed: Yes Alprazolam (Xanax) 0.25 Mg Tablet, 0.25 MG PO HS, (Reported) Entered as Reported by: CESAR TORO on 04/16/141553 Cephalexin (Cephalexin) 500 Mg Tablet, 500 MG PO TID Prescribed by: ANTONETTE GUALLPA on 07/01/212024 Cyclobenzaprine Hcl (Flexeril Tablet) 10 Mg Tablet, 10 MG PO TID PRN for p, (Reported) Entered as Reported by: CESAR TORO on 04/16/141553 Dicyclomine Hcl (Bentyl) 10 Mg Capsule, 1 EACH PO TID PRN, (Reported) Entered as Reported by: CESAR TORO on 04/16/141553 Hydrochlorothiazide (Hydrochlorothiazide) 12.5 Mg Tablet, 12.5 MG PO DAILY Prescribed by: CHANA NORIEGA on 03/28/18 2236 Hydrochlorothiazide (Hydrochlorothiazide) 12.5 Mg Tablet, 12.5 MG PO DAILY Prescribed by: CHANA NORIEGA on 03/31/18 1024 Hydrochlorothiazide (Hydrochlorothiazide) 12.5 Mg Tablet, 12.5 MG PO DAILY Prescribed by: CHANA NORIEGA on 03/28/18 1402 Hydrocodone Bit/Acetaminophen (Hydrocodon-Acetaminophn 10-325) 1 Each Tablet, 1 EACH PO UD PRN for PAIN, (Reported) Entered as Reported by: CESAR TORO on 04/16/141553 Ibuprofen (Ibuprofen) 200 Mg Tablet, 400 MG PO BID, (Reported) Entered as Reported by: CESAR TORO on 04/16/141553 Promethazine Hcl (Phenergan) 12.5 Mg Tablet, 25 MG PO PRN PRN for NAUSEA/VOMITING, (Reported) Entered as Reported by: CESAR TORO on 04/16/141553 Propranolol Hcl (Inderal) 80 Mg Tablet, 1 EACH PO DAILY, (Reported) Entered as Reported by: CESAR TORO on 04/16/141553 Propranolol Hcl (Inderal) 40 Mg Tablet, 1 EACH PO @ noon and pm, (Reported) Entered as Reported by: CESAR TORO on 04/16/141553 Pseudoephedrine Hcl (Sudafed) 30 Mg Tab, 1 TAB PO DAILY PRN for CONGESTION, (Reported) Entered as Reported by: CESAR TORO on 04/16/141553 Starch (Anusol Supp) 1 Ea Supp, 1 EA [place] DAILY PRN for HEMORRHOIDS Prescribed by: DASIA SMITH on 04/16/14 1726 Review of Systems Review of Systems Constitutional: chills, malaise, weakness Eyes: Denies Blindness, Denies Blurred Vision Ears, Nose, Mouth, Throat: denies ear pain, denies ear discharge Respiratory: No cough; short of breath Cardiovascular: No edema, No palpitations Gastrointestinal: No abdominal pain, No nausea, No vomiting Genitourinary: No discharge, No dysuria Musculoskeletal: No back pain, No joint pain Skin: No pruritus, No rash Psychiatric/Neurological: Denies Anxiety, Denies Depressed All Other Systems Reviewed Negative Unless Noted: Yes Past Yswozvh-Ypczuo-Ertvoy Hx Patient Social History Tobacco Use?: No Substance use?: No Alcohol Use?: No Pt feels they are or have been: No Immunizations Up To Date First/Initial COVID19 Vaccinat: 12/29 Second COVID19 Vaccination Thai: 12/29 COVID19 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 Surgeries: Yes (ARM SURGERY,ULNAR NERVE SURGERY L-ARM) Appendectomy, Gallbladder, Tonsillectomy Respiratory: No Cardiac: Yes High Cholesterol, Hypertension Neurological: Yes Headaches /Migraines, TIA Reproductive Disorders: No Genitourinary: No Gastrointestinal: No Musculoskeletal: Yes Chronic Back Pain Endocrine: Yes (MORBID OBESITY IN WEIGHT LOSS PLAN) Adrenal Disease Cancer: No Psychosocial: No Integumentary: No Blood Disorders: No Physical Exam Vital Signs Vital Signs - First Documented 07/13/21 07/13/21 09:52 09:54 Temp 37.2 Pulse 108 Resp 20 B/P (MAP) 123/64 (83) Pulse Ox 84 O2 Delivery Room Air O2 Flow Rate 2.00 FiO2 96 Capillary Refill : Height, Weight, BMI Height: 5'6.00" Weight: 206lbs. oz. 93.556460fa; 34.00 BMI Method:Stated General Appearance: moderate distress, obese HEENT: PERRL/EOMI, pharynx normal Neck: full range of motion, supple, normal inspection Cardiovascular: normal peripheral pulses, regular rate, rhythm Respiratory: chest non-tender, lungs clear, normal breath sounds, no respiratory distress, no accessory muscle use Gastrointestinal: normal bowel sounds, non tender, soft, no organomegaly Back: normal inspection, no vertebral tenderness Extremities: non-tender, normal inspection, normal capillary refill Neurologic/Psychiatric: no motor/sensory deficits, alert, normal mood/affect, oriented x 3 Skin: normal color, warm/dry [place] Coma Score Best Eye Response: (4) Open Spontaneously Best Verbal Response: (5) Oriented Best Motor Response: (6) Obeys Commands Annie Total: 15 Progress/Results/Core Measures Results/Orders Lab Results Laboratory Tests Test 07/13/21 09:56 07/13/21 11:30 Range/Units White Blood Count 15.5 H 4.3-11.0 10^3/uL Red Blood Count 5.03 3.80-5.11 10^6/uL Hemoglobin 17.5 H 11.5-16.0 g/dL Hematocrit 52 35-52 % Mean Corpuscular Volume 104 H 80-99 fL Mean Corpuscular Hemoglobin 35 H 25-34 pg Mean Corpuscular Hemoglobin Concent 34 32-36 g/dL Red Cell Distribution Width 14.2 10.0-14.5 % Platelet Count 241 130-400 10^3/uL Mean Platelet Volume 10.1 9.0-12.2 fL Immature Granulocyte % (Auto) 0 % Neutrophils (%) (Auto) 86 H 42-75 % Lymphocytes (%) (Auto) 9 L 12-44 % Monocytes (%) (Auto) 4 0-12 % Eosinophils (%) (Auto) 0 0-10 % Basophils (%) (Auto) 0 0-10 % Neutrophils # (Auto) 13.4 H 1.8-7.8 10^3/uL Lymphocytes # (Auto) 1.4 1.0-4.0 10^3/uL Monocytes # (Auto) 0.6 0.0-1.0 10^3/uL Eosinophils # (Auto) 0.0 0.0-0.3 10^3/uL Basophils # (Auto) 0.1 0.0-0.1 10^3/uL Immature Granulocyte # (Auto) 0.1 0.0-0.1 10^3/uL Neutrophils % (Manual) 87 % Lymphocytes % (Manual) 8 % Monocytes % (Manual) 5 % Anisocytosis SLIGHT Macrocytosis SLIGHT Prothrombin Time 13.8 12.2-14.7 SEC INR Comment 1.0 0.8-1.4 Activated Partial Thromboplast Time 43 H 24-35 SEC Blood Gas Puncture Site LT RAD Blood Gas Patient Temperature 99.1 Arterial Blood pH 7.41 7.37-7.43 Arterial Blood Partial Pressure CO2 41 35-45 MMHG Arterial Blood Partial Pressure O2 77 L 79-93 MMHG Arterial Blood HCO3 26 23-27 MMOL/L Arterial Blood Total CO2 26.7 21.0-31.0 MMOL/L Arterial Blood Oxygen Saturation 95 94-100 % Arterial Blood Base Excess 1.4 -2.5-2.5 MMOL/L Tristian Test YES-POS Blood Gas Ventilator Setting NO Blood Gas Inspired Oxygen 3 L Sodium Level 138 135-145 MMOL/L Potassium Level 4.5 3.6-5.0 MMOL/L Chloride Level 100 98-107 MMOL/L Carbon Dioxide Level 24 21-32 MMOL/L Anion Gap 14 5-14 MMOL/L Blood Urea Nitrogen 14 7-18 MG/DL Creatinine 1.60 H 0.60-1.30 MG/DL Estimat Glomerular Filtration Rate 32 BUN/Creatinine Ratio 9 Glucose Level 174 H 70-105 MG/DL Lactic Acid Level 3.37 *H 0.50-2.00 MMOL/L Calcium Level 10.0 8.5-10.1 MG/DL Corrected Calcium 10.1 8.5-10.1 MG/DL Total Bilirubin 1.1 H 0.1-1.0 MG/DL Aspartate Amino Transf (AST/SGOT) 122 H 5-34 U/L Alanine Aminotransferase (ALT/SGPT) 36 0-55 U/L Alkaline Phosphatase 40 40-136 U/L Troponin I 5.698 *H <0.028 NG/ML Total Protein 7.1 6.4-8.2 GM/DL Albumin 3.9 3.2-4.5 GM/DL Influenza Type A (RT-PCR) Not Detected Not Detecte Influenza Type B (RT-PCR) Not Detected Not Detecte SARS-CoV-2 RNA (RT-PCR) Not Detected Not Detecte Urine Color ORANGE Urine Clarity CLEAR Urine pH 6.5 5-9 Urine Specific [place] 1.010 L 1.016-1.022 Urine Protein 2+ H NEGATIVE Urine Glucose (UA) NEGATIVE NEGATIVE Urine Ketones NEGATIVE NEGATIVE Urine Nitrite NEGATIVE NEGATIVE Urine Bilirubin NEGATIVE NEGATIVE Urine Urobilinogen 0.2 < = 1.0 MG/DL Urine Leukocyte Esterase NEGATIVE NEGATIVE Urine RBC (Auto) 3+ H NEGATIVE Urine RBC 2-5 H /HPF Urine WBC 2-5 /HPF Urine Squamous Epithelial Cells 2-5 /HPF Urine Crystals PRESENT H /LPF Urine Amorphous Sediment FEW GARY URATES H /LPF Urine Bacteria NEGATIVE /HPF Urine Casts PRESENT /LPF Urine Granular Casts RARE /LPF Urine Mucus NEGATIVE /LPF Urine Culture Indicated NO My Orders Orders - LULA MURPHY Ct Head/Cervical Spine Wo (07/13/21 10:05) Cbc With Automated Diff (07/13/21 10:05) Comprehensive Metabolic Panel (07/13/21 10:05) Blood Culture (07/13/21 10:05) Sputum Culture (07/13/21 10:05) Urinalysis (07/13/21 10:05) Urine Culture (07/13/21 10:05) Protime With Inr (07/13/21 10:05) Partial Thromboplastin Time (07/13/21 10:05) Chest 1 View, Ap/Pa Only (07/13/21 10:05) Ed Iv/Invasive Line Start (07/13/21 10:05) Ed Iv/Invasive Line Start (07/13/21 10:05) Troponin I (07/13/21 10:05) Vital Signs Adult Sepsis Patie Q15M (07/13/21 10:05) O2 (07/13/21 10:05) Remove Rings In Anticipation O (07/13/21 10:05) Lactic Acid Analyzer (07/13/21 10:05) Influenza A And B By Pcr (07/13/21 10:05) Ns Iv 1000 Ml (Sodium Chloride 0.9%) (07/13/21 10:15) Ceftriaxone (Rocephin) (07/13/21 10:15) Azithromycin Injection (Zithromax Inject (07/13/21 10:15) Ed Iv/Invasive Line Start (07/13/21 10:05) Ns Iv 500 Ml (Sodium Chloride 0.9%) (07/13/21 10:15) Covid 19 Inhouse Test (07/13/21 10:05) Arterial Blood Gas (07/13/21 10:05) Manual Differential (07/13/21 09:56) Arterial Blood Gas (07/13/21 10:17) Catheter(Urinary) Insert & Ass 03,15 (07/13/21 11:26) Ed Iv/Invasive Line Start (07/13/21 11:33) Ns Iv 1000 Ml (Sodium Chloride 0.9%) (07/13/21 11:45) Aspirin Chewable Tablet (Baby Aspirin Ch (07/13/21 11:45) Medications Given in ED Current Medications Medications Dose Ordered Sig/Gail Route Start Time Stop Time Status Last Admin Dose Admin Aspirin 324 mg ONCE ONCE PO 07/13/21 11:45 07/13/21 11:46 DC 10/3/21 11:51 324 MG Azithromycin 500 mg/Sodium Chloride 255 ml @ 250 mls/hr ONCE ONCE IV 07/13/21 10:15 07/13/21 11:16 DC 07/13/21 10:46 250 MLS/HR Ceftriaxone Sodium 1000 mg/ Sterile Water 10 ml @ 200 mls/hr ONCE ONCE IV 07/13/21 10:15 07/13/21 10:17 DC 07/13/21 10:42 200 MLS/HR Sodium Chloride 500 ml @ 0 mls/hr Q0M ONCE IV 07/13/21 10:15 07/13/21 10:16 DC 07/13/21 10:48 500 MLS/HR Vital Signs/I&O 07/13/21 07/13/21 07/13/21 09:52 09:52 09:54 Temp 37.2 37.2 Pulse 108 108 Resp 20 22 B/P (MAP) 123/64 (83) 123/64 Pulse Ox 84 96 O2 Delivery Room Air Room Air Nasal Cannula O2 Flow Rate 2.00 FiO2 96 Progress Progress Note #1: Time: 10:[address] of the head and C-spine without IV contrast, 1500 cc would be greater than 20 mL/kg based on ideal body weight of 162 pounds. Rocephin and azithromycin as I suspect since she has hypoxic when she enters the ER 86% on room air that a pneumonia may be the cause of her symptoms. We will swab her for Covid and influenza and get a chest x-ray. Sepsis work-up Progress Note #2: Time: 11:29 Progress Note Severe sepsis from UTI or possibly pneumonia with Rocephin and azithromycin coverage. She has received her 20 mL/kg fluid bolus and maintains a good blood pressure. We will go ahead and order another liter of fluids bring her up over 30 mL/kg. Nursing attempted to get the patient up on the commode to have a bowel movement and the patient became weight according to the nurse and took 3 people to get her back into bed. A Baron catheter was placed for safety as well as since she had a fall and weakness. Her troponin is significantly elevated and I suspect NSTEMI. Creatinine is moderately elevated but not enough to explain the troponin. We will give her aspirin and if her CT is clear we will discuss blood thinners with cardiology Initial ECG Impression Date: Jul 13, 2021 Initial ECG Impression Time: 11:35 Initial ECG Rate: 101 Initial ECG Rhythm: S.Tach Initial ECG Intervals: QT (475) Initial ECG Impression: Normal, Nonspecific Changes Initial ECG Comparisson: Unchanged Comment Sinus tachycardia without clinically relevant ST elevation or depression. Diagnostic Imaging Diagonstic Imaging: Xray Plain Films/CT/US/NM/MRI: chest Comments [facility], [place] NAME: REUBEN TERAN [facility] REC#: [id number] PT STATUS: REG ER : 1955 PHYSICIAN: LULA MURPHY MD ADMIT DATE: 07/13/21/ER Draft Date of Exam:07/13/21 CHEST 1 VIEW, AP/PA ONLY INDICATION: Sepsis COMPARISON: 07/01/2021 TECHNIQUE: Single radiograph of the chest dated 07/13/2021. FINDINGS: The cardiac silhouette is enlarged, similar to the prior examination. Mild central pulmonary vascular congestion. Slightly increased prominence of the pulmonary interstitium is noted without additional focal pulmonary consolidation. No significant pleural effusion. No pneumothorax. No acute osseous abnormality IMPRESSION: Constellation of findings is suggestive of congestive heart failure/volume overload with minimal interstitial edema without significant pleural effusion. Dictated on workstation # [id number] Dict: 07/13/21 1217 Trans: 07/13/21 1220 CVB [id number] Interpreted by: ARIADNA RUIZ MD Electronically signed by: Reviewed: Reviewed by Me Diagonstic Imaging: CT Plain Films/CT/US/NM/MRI: c-spine, head Comments [facility] [place] [place] NAME: REUBEN TERAN [facility] REC#: [id number] PT STATUS: REG ER : 1955 PHYSICIAN: LULA MURPHY MD ADMIT DATE: 07/13/21/ER Draft Date of Exam:07/13/21 CT HEAD/CERVICAL SPINE WO PROCEDURE: CT head and CT cervical spine without contrast. TECHNIQUE: Multiple contiguous axial images were obtained through the brain and cervical spine without the use of intravenous contrast. Sagittal and coronal reformations through the cervical spine were then performed. Auto Exposure Controls were utilized during the CT exam to meet ALARA standards for radiation dose reduction. Indication: Fall with head and neck pain. Struck back of head. Comparison: Head CT 07/01/2021. Discussion: Head: White matter hypoattenuation is nonspecific though not greater than expected for age related chronic small vessel ischemic disease, stable. Chronic lacunar infarcts within the bilateral basal ganglia are stable. No acute intracranial hemorrhage, mass, midline shift, hydrocephalus. The orbits, sinuses, mastoid air cells, and calvarium are unremarkable. Cervical spine: Mild to moderate degenerative disc disease facet arthropathies noted diffusely throughout the cervical spine. There is no acute fracture or subluxation identified. Atherosclerotic plaques noted within the bilateral carotid bifurcations which are retropharyngeal in location. Impression: 1. Senescent changes as described. No acute intracranial abnormality identified. Stable head CT. 2. No acute abnormality within the cervical spine. Dictated on workstation # [id number] Dict: 07/13/21 1221 Trans: 07/13/21 1230 [facility] [id number] Interpreted by: SHAY VASQUEZ MD Electronically signed by: Reviewed: Reviewed by Me Focused Exam Lactate Level 07/13/21 09:56: Lactic Acid Level 3.37*H Lactic Acid Level Laboratory Tests Test 07/13/21 09:56 Lactic Acid Level 3.37 MMOL/L (0.50-2.00) *H Departure Impression Primary Impression: Fall Qualified Codes: W19.XXXA - Unspecified fall, initial encounter Additional Impressions: UTI (urinary tract infection) Qualified Codes: N30.00 - Acute cystitis without hematuria Severe sepsis NSTEMI (non-ST elevated myocardial infarction) Disposition: ADMITTED INPATIENT Condition: Stable Admissions Decision to Admit Reason: Admit from ER (General) LULA MURPHY Jul 13, 2021 10:14
[2021-07-13] MEDS ORDERED: cefTRIAXone 1,000 MG in WATER (STERILE) FOR INJECTION 10 ML IV ONE (10:15)
[2021-07-13] MEDS ORDERED: NS IV 1000 ML 1,000 ML IV SCH ×2 (10:15→11:45)
[2021-07-13] MEDS ORDERED: NS IV 500 ML 500 ML IV ONE (10:15)
[2021-07-13] MEDS ORDERED: AZITHROMYCIN INJECTION 500 MG in NS (IVPB) 250 ML IV ONE (10:15)
[2021-07-13 10:21] LABS: ABG BASE EXCESS 1.4 MMOL/L (-2.5-2.5); ABG OXYGEN SATURATION 95 % (94-100); ABG PCO2 41 MMHG (35-45); ABG PH 7.41 (7.37-7.43); ABG PO2 77 MMHG (79-93); ABG TCO2 26.7 MMOL/L (21.0-31.0); ALLENS TEST YES-POS; INSPIRED O2 3 L; PATIENT TEMP 99.1; VENTILATOR NO
[2021-07-13 10:24] LABS: BASOPHILS # (AUTO) 0.1 10^3/uL (0.0-0.1); BASOPHILS % (AUTO) 0 % (0-10); EOSINOPHILS % (AUTO) 0 % (0-10); HEMATOCRIT 52 % (35-52); HEMOGLOBIN 17.5 g/dL (11.5-16.0); LYMPHOCYTES # (AUTO) 1.4 10^3/uL (1.0-4.0); LYMPHOCYTES % (AUTO) 9 % (12-44); MEAN CORPUSCULAR HEMOGLOBIN 35 pg (25-34); MEAN CORPUSCULAR HGB CONC 34 g/dL (32-36); MEAN CORPUSCULAR VOLUME 104 fL (80-99); MEAN PLATELET VOLUME 10.1 fL (9.0-12.2); MONOCYTES # (AUTO) 0.6 10^3/uL (0.0-1.0); MONOCYTES % (AUTO) 4 % (0-12); NEUTROPHILS # (AUTO) 13.4 10^3/uL (1.8-7.8); NEUTROPHILS % (AUTO) 86 % (42-75); PLATELET COUNT 241 10^3/uL (130-400); WHITE BLOOD COUNT 15.5 10^3/uL (4.3-11.0)
[2021-07-13 10:35] LABS: ALBUMIN 3.9 GM/DL (3.2-4.5); POTASSIUM 4.5 MMOL/L (3.6-5.0); PROTHROMBIN TIME PATIENT 13.8 SEC (12.2-14.7)
[2021-07-13 10:38] LABS: TOTAL PROTEIN 7.1 GM/DL (6.4-8.2)
[2021-07-13 10:40] LABS: BILIRUBIN,TOTAL 1.1 MG/DL (0.1-1.0)
[2021-07-13 10:41] LABS: CREATININE SERUM 1.6 MG/DL (0.60-1.30)
[2021-07-13 11:01] LABS: ANISOCYTOSIS SLIGHT; LYMPHOCYTES % (MANUAL) 8 %; MONOCYTES % (MANUAL) 5 %; NEUTROPHILS % (MANUAL) 87 %
[2021-07-13] MEDS ORDERED: ASPIRIN 81 MG CHEW (CHILDREN'S ASA) PO ONE (11:45)
[2021-07-13 11:48] LABS: BILIRUBIN,URINE NEGATIVE (NEGATIVE); CLARITY,URINE CLEAR; COLOR,URINE ORANGE; GLUCOSE, URINE (UA) NEGATIVE (NEGATIVE); KETONES,URINE NEGATIVE (NEGATIVE); LEUKOCYTE ESTERASE ,URINE NEGATIVE (NEGATIVE); NITRITE,URINE NEGATIVE (NEGATIVE); PH,URINE 6.5 (5-9); PROTEIN,URINE 2+ (NEGATIVE)
[2021-07-13 11:56] LABS: AMORPHOUS SEDIMENT,UR FEW AMOR URATES /LPF; BACTERIA,URINE NEGATIVE /HPF; GRANULAR CASTS,URINE RARE /LPF
--- NOTE | 2021-07-13 12:20 | Diagnostic Imaging Report ---
INDICATION: Sepsis COMPARISON: 07/01/2021 TECHNIQUE: Single radiograph of the chest dated 07/13/2021. FINDINGS: The cardiac silhouette is enlarged, similar to the prior examination. Mild central pulmonary vascular congestion. Slightly increased prominence of the pulmonary interstitium is noted without additional focal pulmonary consolidation. No significant pleural effusion. No pneumothorax. No acute osseous abnormality IMPRESSION: Constellation of findings is suggestive of congestive heart failure/volume overload with minimal interstitial edema without significant pleural effusion. Dictated by: Dictated on workstation # [id number]
--- NOTE | 2021-07-13 12:30 | Diagnostic Imaging Report ---
PROCEDURE: CT head and CT cervical spine without contrast. TECHNIQUE: Multiple contiguous axial images were obtained through the brain and cervical spine without the use of intravenous contrast. Sagittal and coronal reformations through the cervical spine were then performed. Auto Exposure Controls were utilized during the CT exam to meet ALARA standards for radiation dose reduction. Indication: Fall with head and neck pain. Struck back of head. Comparison: Head CT 07/01/2021. Discussion: Head: White matter hypoattenuation is nonspecific though not greater than expected for age related chronic small vessel ischemic disease, stable. Chronic lacunar infarcts within the bilateral basal ganglia are stable. No acute intracranial hemorrhage, mass, midline shift, hydrocephalus. The orbits, sinuses, mastoid air cells, and calvarium are unremarkable. Cervical spine: Mild to moderate degenerative disc disease facet arthropathies noted diffusely throughout the cervical spine. There is no acute fracture or subluxation identified. Atherosclerotic plaques noted within the bilateral carotid bifurcations which are retropharyngeal in location. Impression: 1. Senescent changes as described. No acute intracranial abnormality identified. Stable head CT. 2. No acute abnormality within the cervical spine. Dictated by: Dictated on workstation # [id number]
[2021-07-13] MEDS ORDERED: ENOXAPARIN 60 MG/0.6 ML (LOVENOX) SYR SC ONE ×2 (13:45)
[2021-07-13] MEDS ORDERED: CLOPIDOGREL 75 MG (PLAVIX) TABLET PO ONE (13:45)
[2021-07-13] MEDS ORDERED: ACETAMINOPHEN 650 MG SUPP (TYLENOL) PR PRN (15:30)
[2021-07-13] MEDS: LACTATED RINGERS 1,000 ML IV SCH ×2 (15:39→21:08)
[2021-07-13] MEDS ORDERED: morphine INJ 4 MG/ML 1 ML (VIAL/SYRINGE) IV PRN (15:45)
[2021-07-13] MEDS ORDERED: NITROGLYCERIN 0.4 MG SL TABS BTL 25'S SL PRN (15:45)
[2021-07-13 16:06] VITALS: BP 127/79
[2021-07-13] MEDS: MICONAZOLE 2% POWDER (DESENEX AF) 90 GM TOP SCH ×2 (16:27→21:09)
[2021-07-13 20:00] VITALS: BP 131/73
[2021-07-14] VITALS (7 sets, daily range): BP systolic 112–144; BP diastolic 51–87
[2021-07-14] MEDS: LACTATED RINGERS 1,000 ML IV SCH (04:50)
[2021-07-14] MEDS: ENOXAPARIN 300 MG/3 ML (LOVENOX) MULTI-DOSE VIAL SQ SCH ×2 (04:50→14:21)
[2021-07-14 05:29] LABS: BASOPHILS % (AUTO) 0 % (0-10); EOSINOPHILS % (AUTO) 0 % (0-10); HEMATOCRIT 44 % (35-52); HEMOGLOBIN 14.6 g/dL (11.5-16.0); LYMPHOCYTES # (AUTO) 1.7 10^3/uL (1.0-4.0); LYMPHOCYTES % (AUTO) 15 % (12-44); MEAN CORPUSCULAR HEMOGLOBIN 35 pg (25-34); MEAN CORPUSCULAR HGB CONC 33 g/dL (32-36); MEAN CORPUSCULAR VOLUME 105 fL (80-99); MONOCYTES # (AUTO) 0.8 10^3/uL (0.0-1.0); MONOCYTES % (AUTO) 6 % (0-12); NEUTROPHILS # (AUTO) 9.2 10^3/uL (1.8-7.8); NEUTROPHILS % (AUTO) 78 % (42-75); PLATELET COUNT 196 10^3/uL (130-400); WHITE BLOOD COUNT 11.8 10^3/uL (4.3-11.0)
[2021-07-14 05:38] LABS: POTASSIUM 4.1 MMOL/L (3.6-5.0)
[2021-07-14 05:39] LABS: CALCIUM 8.7 MG/DL (8.5-10.1)
[2021-07-14 05:41] LABS: TRIGLYCERIDES 140 MG/DL (<150); VLDL CHOLESTEROL 28 MG/DL (5-40)
[2021-07-14 05:43] LABS: CREATININE SERUM 1.02 MG/DL (0.60-1.30)
[2021-07-14 05:46] LABS: CHOLESTEROL 109 MG/DL (< 200); HDL CHOLESTEROL 32 MG/DL (40-60)
--- NOTE | 2021-07-14 06:32 | Diagnostic Imaging Report ---
Reason for examination: Respiratory failure with hypoxemia. Upright AP portable chest was obtained and compared to 07/13/2021. Cardiomediastinal silhouette is within normal limits. No mediastinal widening. No effusions, infiltrates or pneumothorax. No acute osseous abnormality. IMPRESSION: 1. No acute findings in the chest. Dictated by: Dictated on workstation # [id number]
--- NOTE | 2021-07-14 08:53 | Consultation-Cardiology ---
HPI-Cardiology Cardiology Consultation: Date of Consultation 07/14/21 Time Seen by a Provider: 08:30 Date of Admission 07-13-21 Attending Physician Keke Morales MD Admitting Physician No,Local Physician Consulting Physician Karson Rodriguez MD HPI: Chief Complaint: Syncope Ms. Amos is a 66 yr old female admitted to [facility] from the ED with syncopal episode. She reports she was sweeping her floor yesterday and passed out. She reports she came to when she hit the floor. No loss of bowel or bladder control. She denies any c/o CP, SOB or palpitations prior to the episode. She reports chronic palpitations which she has had for 18 yrs and is on propranolol. She reports she had a similar episode 2 weeks ago and was told she had a stroke at that time with left sided upper and lower extremity weakness and slurring of words which has persisted. She reports she refused admission to the hospital at that time. She reports chronic back pain for which she takes oxycodone at home and has been taking it for the last 18 yrs. She denies any fever or chills. She reports frequent diarrhea. She states she wants to go home. Review of Systems-Cardiology Review of Systems Constitutional: No chills, No fever; malaise Eyes: No vision change Ears/Nose/Throat: No epistaxis, No recent hearing loss Respiratory: As described under HPI Cardiovascular: As described under HPI Gastrointestinal: diarrhea; No nausea, No vomiting Genitourinary: No dysuria, No hematuria Musculoskeletal: back pain Skin: No rash on exposed areas, No ulcerations on exposed areas Psychiatric/Neurological: As described under HPI, syncope Hematologic: No bleeding abnormalities All Other Systems Reviewed Negative Unless Noted: Yes VJS-Wradkq-Yezfyh Hx Patient Social History Smoking Status: Former Smoker Have you traveled recently?: No Alcohol Use?: No Pt feels they are or have been: No Immunizations Up To Date Date of Influenza Vaccine: Aug 10, 2016 Past Medical History PMH As described under Assessment. Family Medical History Family Medical History: She reports her mother had strokes and her father had CAD. Allergies and Home Medications Allergies Coded Allergies: morphine (Verified Allergy, Severe, Angioedema, 07/14/21) Tetanus Vaccines and Toxoid (Verified Allergy, Unknown, 04/16/14) Patient Home Medication List Aspirin (Aspirin EC) 81 Mg Tablet.dr, 243 MG PO DAILY, (Reported) Entered as Reported by: RICHA MARSHALL on 07/14/211117 Last Action: Held Cephalexin (Cephalexin) 500 Mg Capsule, 500 MG PO TID, (Reported) Entered as Reported by: RICHA MARSHALL on 07/14/211117 Last Action: Held Cholecalciferol (Vitamin D3) (Vitamin D3) 1,250 Mcg Capsule, 1,250 MCG PO WED, (Reported) Entered as Reported by: RICHA MARSHALL on 07/14/211117 Last Action: Converted Oxycodone HCl (Oxycodone HCl) 10 Mg Tablet, 10 MG PO QID PRN for PAIN-SEVERE (8- 10), (Reported) Entered as Reported by: RICHA MARSHALL on 07/14/211117 Last Action: Converted Propranolol HCl (Propranolol HCl) 10 Mg Tablet, 5 MG PO BID, (Reported) Entered as Reported by: RICHA MARSHALL on 07/14/211117 Last Action: Held Discontinued Medications Alprazolam (Xanax) 0.25 Mg Tablet, 0.25 MG PO HS, (Reported) Discontinued Reason: No Longer Taking Entered as Reported by: CESAR TORO on 04/16/141553 Last Action: Discontinued Cephalexin (Cephalexin) 500 Mg Tablet, 500 MG PO TID Discontinued Reason: No Longer Taking Prescribed by: ANTONETTE GUALLPA on 07/01/212024 Last Action: Discontinued Cyclobenzaprine Hcl (Flexeril Tablet) 10 Mg Tablet, 10 MG PO TID PRN for p, (Reported) Discontinued Reason: No Longer Taking Entered as Reported by: CESAR TORO on 04/16/141553 Last Action: Discontinued Dicyclomine Hcl (Bentyl) 10 Mg Capsule, 1 EACH PO TID PRN, (Reported) Discontinued Reason: No Longer Taking Entered as Reported by: CESAR TORO on 04/16/141553 Last Action: Discontinued Hydrochlorothiazide (Hydrochlorothiazide) 12.5 Mg Tablet, 12.5 MG PO DAILY Discontinued Reason: No Longer Taking Prescribed by: CHANA NORIEGA on 03/28/18 823 Last Action: Discontinued Hydrochlorothiazide (Hydrochlorothiazide) 12.5 Mg Tablet, 12.5 MG PO DAILY Discontinued Reason: Duplicate Order Prescribed by: CHANA NORIEGA on 03/31/18 1024 Last Action: Discontinued Hydrochlorothiazide (Hydrochlorothiazide) 12.5 Mg Tablet, 12.5 MG PO DAILY Discontinued Reason: Duplicate Order Prescribed by: CHANA NORIEGA on 03/28/18 1402 Last Action: Discontinued Hydrocodone Bit/Acetaminophen (Hydrocodon-Acetaminophn 10-325) 1 Each Tablet, 1 EACH PO UD PRN for PAIN, (Reported) Discontinued Reason: No Longer Taking Entered as Reported by: CESAR TORO on 04/16/141553 Last Action: Discontinued Ibuprofen (Ibuprofen) 200 Mg Tablet, 400 MG PO BID, (Reported) Discontinued Reason: No Longer Taking Entered as Reported by: CESAR TORO on 04/16/141553 Last Action: Discontinued Promethazine Hcl (Phenergan) 12.5 Mg Tablet, 25 MG PO PRN PRN for NAUSEA/VOMITING, (Reported) Discontinued Reason: No Longer Taking Entered as Reported by: CESAR TORO on 04/16/141553 Last Action: Discontinued Propranolol Hcl (Inderal) 80 Mg Tablet, 1 EACH PO DAILY, (Reported) Discontinued Reason: No Longer Taking Entered as Reported by: CESAR TORO on 04/16/141553 Last Action: Discontinued Propranolol Hcl (Inderal) 40 Mg Tablet, 1 EACH PO @ noon and pm, (Reported) Discontinued Reason: No Longer Taking Entered as Reported by: CESAR TORO on 04/16/141553 Last Action: Discontinued Pseudoephedrine Hcl (Sudafed) 30 Mg Tab, 1 TAB PO DAILY PRN for CONGESTION, (Reported) Discontinued Reason: No Longer Taking Entered as Reported by: CESAR TORO on 04/16/141553 Last Action: Discontinued Starch (Anusol Supp) 1 Ea Supp, 1 EA MD DAILY PRN for HEMORRHOIDS Discontinued Reason: No Longer Taking Prescribed by: DASIA SMITH on 04/16/14 1726 Last Action: Discontinued Physical Exam-Cardiology Physical Exam Vital Signs/I&O 07/15/21 07/16/21 07/16/21 07/16/21 23:32 01:00 04:00 06:36 Temp 36.8 36.5 Pulse 72 67 73 Resp 18 18 B/P (MAP) 128/61 (83) 136/71 (92) Pulse Ox 96 97 O2 Delivery Nasal Cannula Nasal Cannula Nasal Cannula O2 Flow Rate 2.00 2.00 2.00 07/16/21 08:00 Temp 36.2 Pulse 64 Resp 14 B/P (MAP) 132/68 (89) Pulse Ox 100 O2 Delivery Nasal Cannula O2 Flow Rate 2.00 07/16/21 00:00 Intake Total 100 ml Output Total 340 ml Balance -240 ml Capillary Refill : Less Than 3 Seconds Constitutional: AAO x 3, well-developed, well-nourished HEENT: PERRL, hearing is well preserved Neck: No carotid bruit; carotid pulses are 2 + bilaterally Respiratory: No accessory muscle use, No respiratory distress; chest expansion is symmetric, chest is bilaterally symmetric, lungs clear to auscultation Cardiovascular: regular rate-rhythm; No JVD; S1 and S2, systolic murmur Gastrointestinal: tender (RLQ and LLQ discomfort with palpation), soft, audible bowel sounds Extremities: no lower extremity edema bilateral Neurologic/Psychiatric: other (slurred speech; LUE and LLE 4/5) Skin: No rash on exposed areas, No ulcerations on exposed areas Data Review Labs Laboratory Tests 07/15/21 14:16: Coronavirus (COVID-19)(PCR) Negative Microbiology 07/13/21 Urine Culture - Final, Complete NO GROWTH 07/13/21 Blood Culture - Preliminary, Resulted No growth Radiology NAME: REUBEN AMOS [facility] REC#: [id number] PT STATUS: ADM IN : 1955 PHYSICIAN: LULA MURPHY MD ADMIT DATE: 07/13/21/[facility] Signed Date of Exam:07/13/21 CT HEAD/CERVICAL SPINE WO PROCEDURE: CT head and CT cervical spine without contrast. TECHNIQUE: Multiple contiguous axial images were obtained through the brain and cervical spine without the use of intravenous contrast. Sagittal and coronal reformations through the cervical spine were then performed. Auto Exposure Controls were utilized during the CT exam to meet ALARA standards for radiation dose reduction. Indication: Fall with head and neck pain. Struck back of head. Comparison: Head CT 07/01/2021. Discussion: Head: White matter hypoattenuation is nonspecific though not greater than expected for age related chronic small vessel ischemic disease, stable. Chronic lacunar infarcts within the bilateral basal ganglia are stable. No acute intracranial hemorrhage, mass, midline shift, hydrocephalus. The orbits, sinuses, mastoid air cells, and calvarium are unremarkable. Cervical spine: Mild to moderate degenerative disc disease facet arthropathies noted diffusely throughout the cervical spine. There is no acute fracture or subluxation identified. Atherosclerotic plaques noted within the bilateral carotid bifurcations which are retropharyngeal in location. Impression: 1. Senescent changes as described. No acute intracranial abnormality identified. Stable head CT. 2. No acute abnormality within the cervical spine. Dictated by: Dictated on workstation # [id number] Dict: 07/13/21 1221 Trans: 07/13/21 1602 CVB [id number] Interpreted by: SHAY VASQUEZ MD Electronically signed by: SHAY VASQUEZ MD 07/13/211601 NAME: REUBEN AMOS [facility] REC#: [id number] PT STATUS: ADM IN : 1955 PHYSICIAN: KEKE MORALES MD ADMIT DATE: 07/13/21/[facility] Signed Date of Exam:07/14/21 CHEST 1 VIEW, AP/PA ONLY Reason for examination: Respiratory failure with hypoxemia. Upright AP portable chest was obtained and compared to 07/13/2021. Cardiomediastinal silhouette is within normal limits. No mediastinal widening. No effusions, infiltrates or pneumothorax. No acute osseous abnormality. IMPRESSION: 1. No acute findings in the chest. Dictated by: Dictated on workstation # [id number] Dict: 07/14/21 06 Trans: 07/14/21 08 NAVIN [id number] Interpreted by: BISHNU DAUGHERTY MD Electronically signed by: BISHNU DAUGHERTY MD 07/14/21 08 ECG Impression ECG Initial ECG Rhythm: Normal Sinus A/P-Cardiology Assessment/Admission Diagnosis NSTEMI Syncope - undetermined etiology CVA approx 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 upper and lower extremity weakness with slurred speech Palpitations - undetermined etiology Chronic back pain - chronic opiate use Diarrhea - management per medical services Family h/o CAD/CVA - Mother and father Discussion and Recomendations NSTEMI - currently without c/o CP - advise cardiac cath with possible ad hoc coronary intervention. We have discussed the procedure risks, benefits and possible complications. She provides informed consent. We will proceed tomorrow or sooner if indicated. Continue DAPT and Lovenox Continue BB Mangement of previous stroke is per medical services Continue on tele Monitor lab and replace electrolytes as indicated Carotid u/s d/t h/o recent CVA Mangement of diarrhea is per medical services Further recs will be based on her hospital course We would like to thank medical services for this consult ESSIE MOORE Jul 14, 2021 08:53
[2021-07-14] MEDS: cefTRIAXone 1,000 MG/SWFI 10 ML IV PUSH IV SCH ×2 (08:56)
[2021-07-14] MEDS: CLOPIDOGREL 75 MG (PLAVIX) TABLET PO SCH (08:56)
[2021-07-14] MEDS: ASPIRIN 81 MG CHEW (CHILDREN'S ASA) PO SCH (08:56)
[2021-07-14] MEDS: ACETAMINOPHEN 325 MG TABLET PO PRN (08:57)
[2021-07-14] MEDS: MICONAZOLE 2% POWDER (DESENEX AF) 90 GM TOP SCH ×2 (08:58→20:27)
[2021-07-14] MEDS: ONDANSETRON 4 MG/2 ML (SDV) Z0FRAN IV PRN ×2 (09:50→18:58)
[2021-07-14] MEDS ORDERED: AZITHROMYCIN 500 MG/NS 250 ML IVPB IV SCH ×2 (10:00)
--- NOTE | 2021-07-14 10:24 | Consultation-Cardiology ---
HPI-Cardiology Cardiology Consultation: Date of Consultation 07/14/21 Time Seen by a Provider: 09:25 Date of Admission Attending Physician Keke Marie MD Admitting Physician No,Local Physician Consulting Physician DENICE GARCIA MD, MA, FACP, FACC, FSCAI, CCDS HPI: Chief Complaint: Syncope Ms. Amos is a 66 yr old female admitted to [facility] from the ED with syncopal episode. She reports she was sweeping her floor yesterday and passed out. She reports she came to when she hit the floor. No loss of bowel or bladder control. She denies any c/o CP, SOB or palpitations prior to the episode. She reports chronic palpitations which she has had for 18 yrs and is on propranolol. She reports she had a similar episode 2 weeks ago and was told she had a stroke at that time with left sided upper and lower extremity weakness and slurring of words which has persisted. She reports she refused admission to the hospital at that time. She reports chronic back pain for which she takes oxycodone at home and has been taking it for the last 18 yrs. She denies any fever or chills. She reports frequent diarrhea. She states she wants to go home. Review of Systems-Cardiology Review of Systems Constitutional: No chills, No fever; malaise Eyes: No vision change Ears/Nose/Throat: No epistaxis, No recent hearing loss Respiratory: As described under HPI Cardiovascular: As described under HPI Gastrointestinal: diarrhea; No nausea, No vomiting Genitourinary: No dysuria, No hematuria Musculoskeletal: back pain Skin: No rash on exposed areas, No ulcerations on exposed areas Psychiatric/Neurological: As described under HPI, syncope Hematologic: No bleeding abnormalities All Other Systems Reviewed Negative Unless Noted: Yes HJX-Zvbxxh-Bapzlr Hx Patient Social History Smoking Status: Former Smoker Have you traveled recently?: No Alcohol Use?: No Pt feels they are or have been: No Immunizations Up To Date Date of Influenza Vaccine: Aug 10, 2016 Past Medical History PMH As described under Assessment. Family Medical History Family Medical History: She reports her mother had strokes and her father had CAD. Allergies and Home Medications Allergies Coded Allergies: morphine (Verified Allergy, Severe, Angioedema, 07/14/21) Tetanus Vaccines and Toxoid (Verified Allergy, Unknown, 04/16/14) Patient Home Medication List Home Medication List Reviewed: Yes Cephalexin (Cephalexin) 500 Mg Tablet, 500 MG PO TID Prescribed by: ANTONETTE GUALLPA on 07/01/212024 Last Action: Reviewed Dicyclomine Hcl (Bentyl) 10 Mg Capsule, 1 EACH PO TID PRN, (Reported) Entered as Reported by: CESAR TORO on 04/16/141553 Last Action: Reviewed Hydrochlorothiazide (Hydrochlorothiazide) 12.5 Mg Tablet, 12.5 MG PO DAILY Prescribed by: CHANA NORIEGA on 03/28/182235 Last Action: Reviewed Hydrocodone Bit/Acetaminophen (Hydrocodon-Acetaminophn 10-325) 1 Each Tablet, 1 EACH PO UD PRN for PAIN, (Reported) Entered as Reported by: CESAR TORO on 04/16/141553 Last Action: Reviewed Ibuprofen (Ibuprofen) 200 Mg Tablet, 400 MG PO BID, (Reported) Entered as Reported by: CESAR TORO on 04/16/141553 Last Action: Reviewed Promethazine Hcl (Phenergan) 12.5 Mg Tablet, 25 MG PO PRN PRN for NAUSEA/VOMITING, (Reported) Entered as Reported by: CESAR TORO on 04/16/141553 Last Action: Reviewed Propranolol Hcl (Inderal) 40 Mg Tablet, 1 EACH PO @ noon and pm, (Reported) Entered as Reported by: CESAR TORO on 04/16/141553 Last Action: Reviewed Pseudoephedrine Hcl (Sudafed) 30 Mg Tab, 1 TAB PO DAILY PRN for CONGESTION, (Reported) Entered as Reported by: CESAR TORO on 04/16/141553 Last Action: Reviewed Discontinued Medications Alprazolam (Xanax) 0.25 Mg Tablet, 0.25 MG PO HS, (Reported) Discontinued Reason: No Longer Taking Entered as Reported by: CESAR TORO on 04/16/141553 Last Action: Discontinued Cyclobenzaprine Hcl (Flexeril Tablet) 10 Mg Tablet, 10 MG PO TID PRN for p, (Reported) Discontinued Reason: No Longer Taking Entered as Reported by: CESAR TORO on 04/16/141553 Last Action: Discontinued Hydrochlorothiazide (Hydrochlorothiazide) 12.5 Mg Tablet, 12.5 MG PO DAILY Discontinued Reason: Duplicate Order Prescribed by: CHANA NORIEGA on 03/31/18 1024 Last Action: Discontinued Hydrochlorothiazide (Hydrochlorothiazide) 12.5 Mg Tablet, 12.5 MG PO DAILY Discontinued Reason: Duplicate Order Prescribed by: CHANA NORIEGA on 03/28/18 1402 Last Action: Discontinued Propranolol Hcl (Inderal) 80 Mg Tablet, 1 EACH PO DAILY, (Reported) Discontinued Reason: No Longer Taking Entered as Reported by: CESAR TORO on 04/16/14 1554 Last Action: Discontinued Starch (Anusol Supp) 1 Ea Supp, 1 EA MT DAILY PRN for HEMORRHOIDS Discontinued Reason: No Longer Taking Prescribed by: DASIA SMITH on 04/16/14 1726 Last Action: Discontinued Physical Exam-Cardiology Physical Exam Vital Signs/I&O 07/14/21 07/14/21 07/14/21 07/14/21 00:00 01:00 04:00 06:46 Temp 37.0 36.5 Pulse 91 70 99 72 Resp 20 20 B/P (MAP) 144/78 (100) 114/87 (96) Pulse Ox 97 97 O2 Delivery Nasal Cannula Nasal Cannula O2 Flow Rate 3.00 3.00 07/14/21 07/14/21 08:00 08:00 Temp 36.6 Pulse 72 Resp 24 B/P (MAP) 124/51 (75) Pulse Ox 98 O2 Delivery Nasal Cannula Nasal Cannula O2 Flow Rate 3.00 2.00 07/14/21 00:00 Intake Total 2250 ml Output Total 1250 ml Balance 1000 ml Capillary Refill : Less Than 3 Seconds Constitutional: AAO x 3, well-developed, well-nourished HEENT: PERRL, hearing is well preserved Neck: No carotid bruit; carotid pulses are 2 + bilaterally Respiratory: No accessory muscle use, No respiratory distress; chest expansion is symmetric, chest is bilaterally symmetric, lungs clear to auscultation Cardiovascular: regular rate-rhythm; No JVD; S1 and S2, systolic murmur Gastrointestinal: tender (RLQ and LLQ discomfort with palpation), soft, audible bowel sounds Extremities: no lower extremity edema bilateral Neurologic/Psychiatric: other (slurred speech; LUE and LLE 4/5) Skin: No rash on exposed areas, No ulcerations on exposed areas Data Review Labs Laboratory Tests 07/13/21 11:30: Urine Color ORANGE, Urine Clarity CLEAR, Urine pH 6.5, Urine Specific [place] 1.010L, Urine Protein 2+H, Urine Glucose (UA) NEGATIVE, Urine Ketones NEGATIVE, Urine Nitrite NEGATIVE, Urine Bilirubin NEGATIVE, Urine Urobilinogen 0.2, Urine Leukocyte Esterase NEGATIVE, Urine RBC (Auto) 3+H, Urine RBC 2-5H, Urine WBC 2- 5, Urine Squamous Epithelial Cells 2-5, Urine Crystals PRESENTH, Urine Amorphous Sediment FEW GARY URATESH, Urine Bacteria NEGATIVE, Urine Casts PRESENT, Urine Granular Casts RARE, Urine Mucus NEGATIVE, Urine Culture Indicated NO 07/13/21 13:00: B-Type Natriuretic Peptide 266.5H 07/13/21 14:05: Lactic Acid Level 1.69 07/13/21 16:25: Troponin I 3.881*H 07/13/21 20:25: Procalcitonin 0.63H, Serum Alcohol < 10 07/13/21 22:00: Troponin I 2.788*H 07/14/21 05:20: White Blood Count 11.8H, Red Blood Count 4.20, Hemoglobin 14.6, Hematocrit 44, Mean Corpuscular Volume 105H, Mean Corpuscular Hemoglobin 35H, Mean Corpuscular Hemoglobin Concent 33, Red Cell Distribution Width 14.5, Platelet Count 196, Mean Platelet Volume 10.0, Immature Granulocyte % (Auto) 0, Neutrophils (%) (Auto) 78H, Lymphocytes (%) (Auto) 15, Monocytes (%) (Auto) 6, Eosinophils (%) (Auto) 0, Basophils (%) (Auto) 0, Neutrophils # (Auto) 9.2H, Lymphocytes # (Auto) 1.7, Monocytes # (Auto) 0.8, Eosinophils # (Auto) 0.0, Basophils # (Auto) 0.0, Immature Granulocyte # (Auto) 0.0, Sodium Level 139, Potassium Level 4.1, Chloride Level 107, Carbon Dioxide Level 23, Anion Gap 9, Blood Urea Nitrogen 13, Creatinine 1.02, Estimat Glomerular Filtration Rate 54, BUN/Creatinine Ratio 13, Glucose Level 111H, Calcium Level 8.7, Triglycerides Level 140, Cholesterol Level 109, LDL Cholesterol Direct 49, VLDL Cholesterol 28, HDL Cholesterol 32L A/P-Cardiology Assessment/Admission Diagnosis NSTEMI Syncope - undetermined etiology CVA approx 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 upper and lower extremity weakness with slurred speech and dizziness Palpitations - undetermined etiology Chronic back pain - chronic opiate use Diarrhea - management per medical services Family h/o CAD/CVA - Mother and father Discussion and Recomendations Cardiac cath with possible ad hoc coronary intervention. We have discussed the procedure risks, benefits and possible complications. She provides informed consent. We will proceed tomorrow or sooner if indicated. Continue DAPT and Lovenox Continue BB Mangement of previous stroke is per medical services Continue on tele Monitor lab and replace electrolytes as indicated Carotid u/s d/t h/o recent CVA Mangement of diarrhea is per medical services Further recs will be based on her hospital course We would like to thank medical services for this consult DENICE GARCIA MD FACP FAC CCDS Jul 14, 2021 10:24
--- NOTE | 2021-07-14 10:40 | History & Physical-Hospitalist ---
History of Present Illness HPI/Chief Complaint Pt is a 66yoCF with a PMH of CBP and recent CVA who presented to the ER due to fall. She reports that EMS had been to her house multiple times due to falls and was told they wouldn't come back if she fell again and she needed help so decided to seek evaluation. She believes she may have passed out but is unsure. She doesn't recall any symptoms prior to this. Her son found her and he was unable to tell her how long she was down or if she had any convulsions. She reports feeling better today. No chest pain, shortness of breath, weakness, fever, cough, SOB. Source: patient Date Seen 07/14/21 Time Seen by a Provider: 10:32 Attending Physician Keke Marie MD PCP No,Local Physician Referring Physician Date of Admission Jul 13, 2021 at 11:45 Home Medications & Allergies Home Medications Reviewed patient Home Medication Reconciliation performed by pharmacy medication reconciliations commercial service technician and/or nursing. Patients Allergies have been reviewed. Allergies Allergies Coded Allergies morphine (Verified Allergy, Severe, Angioedema, 07/14/21) Tetanus Vaccines and Toxoid (Verified Allergy, Unknown, 04/16/14) Past Aoggkxp-Vprmxj-Vyhdwe Hx Patient Social History Employed/Student: retired Tobacco Use?: No Smoking Status: Former Smoker Smokeless Tobacco Frequency: Never a User Use of E-Cig and/or Vaping dev: No Substance use?: No Alcohol Use?: No Pt feels they are or have been: No Immunizations Up To Date Date of Influenza Vaccine: Aug 10, 2016 First/Initial COVID19 Vaccinat: December (beginning of ) Second COVID19 Vaccination Thai: December (end of ) Tetanus Booster (TDap): More Than 5 Years Hepatitis A: No Hepatitis B: No Current Status status: No status: No Advance Directives: No Communicates: Verbally Primary Language: Nigerian Preferred Spoken Language: Nigerian Is interpretation needed?: No Implanted or Applied Medical D: None Past Medical History Surgeries: Appendectomy, Gallbladder, Tonsillectomy High Cholesterol, Hypertension Headaches /Migraines, TIA Chronic Back Pain Adrenal Disease Blood Disorders: No Family Medical History Reviewed Nursing Family Hx No Pertinent Family Hx Review of Systems Constitutional: No chills, No fever; malaise EENTM: no symptoms reported Respiratory: no symptoms reported Cardiovascular: No chest pain; syncope Physical Exam Physical Exam Vital Signs Vital Signs - First Documented 07/13/21 07/13/21 09:52 09:54 Temp 37.2 Pulse 108 Resp 20 B/P (MAP) 123/64 (83) Pulse Ox 84 O2 Delivery Room Air O2 Flow Rate 2.00 FiO2 96 Capillary Refill : Less Than 3 Seconds Height, Weight, BMI Height: 5'6.00" Weight: 206lbs. oz. 93.324611wd; 39.00 BMI Method:Stated General Appearance: No Apparent Distress, Chronically ill, Obese HEENT: PERRL/EOMI, Moist Mucous Membranes Neck: Normal Inspection, Supple Respiratory: Lungs Clear, No Accessory Muscle Use, No Respiratory Distress Cardiovascular: Regular Rate, Rhythm, No JVD, No Murmur Gastrointestinal: Normal Bowel Sounds, Non Tender, Soft Extremity: Normal Capillary Refill, No Calf Tenderness, No Pedal Edema Neurologic/Psychiatric: Alert, Oriented x3, Normal Mood/Affect Skin: Normal Color, Warm/Dry Results Results/Procedures Labs Patient resulted labs reviewed. Assessment/Plan Admission Diagnosis NSTEMI Admission Status: Inpatient Order (span 2 midnights) Reason for Inpatient Admission: see below Assessment and Plan NSTEMI troponin 5.6 on arrival and now trending down Cardiology consulted, appreciate recs Plan for cath tomorrow Monitor on telemetry Continue DAPT and lovenox, BB UTI UA here unremarkable but was in the middle of outpatient treatment WBC 15 and procal up Continue Rocephin Recent CVA Denies ER visit on 06/27 CT head last night Chronic pain Continue home meds Chronic Diarrhea imodium DVT ppx: Lovenox Diagnosis/Problems Diagnosis/Problems (1) NSTEMI (non-ST elevated myocardial infarction) Status: Acute (2) Chronic back pain Qualifiers: Back pain location: low back pain Back pain laterality: unspecified Sciatica presence: unspecified whether sciatica present Qualified Codes: M54.5 - Low back pain; G89.29 - Other chronic pain (3) Chronic diarrhea (4) Fall Status: Acute Qualifiers: Encounter type: initial encounter Qualified Codes: W19.XXXA - Unspecified fall, initial encounter (5) UTI (urinary tract infection) Status: Acute Qualifiers: Urinary tract infection type: acute cystitis Hematuria presence: without hematuria Qualified Codes: N30.00 - Acute cystitis without hematuria NENITA BAIRD MD Jul 14, 2021 10:40
[2021-07-14] MEDS ORDERED: oxyCODONE/APAP 5/325MG (PERCOCET 5) TABLET PO PRN (10:45)
[2021-07-14] MEDS ORDERED: PROP10TA8 PO (11:18)
[2021-07-14] MEDS ORDERED: CEPH500C PO (11:18)
[2021-07-14] MEDS ORDERED: OXYC10TA7 PO (11:18)
[2021-07-14] MEDS ORDERED: ASPI-1238 PO (11:18)
[2021-07-14] MEDS ORDERED: CHOL500049 PO (11:18)
--- NOTE | 2021-07-14 15:34 | Diagnostic Imaging Report ---
PROCEDURE: US carotid duplex, bilateral. TECHNIQUE: Multiple real-time grayscale images were obtained over the carotid arteries in various projections, bilaterally. Additional spectral analysis and color Doppler duplex images were also obtained. INDICATION: Syncope. There is mild plaquing at both carotid bifurcations and proximal internal carotid arteries. Velocities are normal bilaterally. No velocity elevation or stenosis is identified. Both vertebral arteries show antegrade flow. IMPRESSION: Mild bilateral carotid plaque. There is no evidence of a hemodynamically significant stenosis. Parameters based on the consensus panel Puentes-Scale and Doppler ultrasound criteria published August 2003, Radiology, Volume 229. DOPPLER (peak systolic velocity M/S Right Left CCA .48 .62 ICA Proximal .39 .76 ICA Mid .58 .7 ICA Distal .76 .66 RATIO 1.6 1.223 ECA 1.2 .98 VERT .5 .58 Dictated by: Dictated on workstation # [id number]
[2021-07-14] MEDS ORDERED: NON-FORMULARY MEDICATION 1 EA EA (Oxycodone HCl 10 MG) PO PRN (18:15)
[2021-07-15] VITALS (14 sets, daily range): BP systolic 112–144; BP diastolic 53–87
[2021-07-15] MEDS: ENOXAPARIN 300 MG/3 ML (LOVENOX) MULTI-DOSE VIAL SQ SCH ×2 (01:24→14:30)
[2021-07-15 06:08] LABS: HEMATOCRIT 43 % (35-52); HEMOGLOBIN 14.1 g/dL (11.5-16.0); MEAN CORPUSCULAR HEMOGLOBIN 35 pg (25-34); MEAN CORPUSCULAR HGB CONC 33 g/dL (32-36); MEAN CORPUSCULAR VOLUME 106 fL (80-99); MEAN PLATELET VOLUME 10.3 fL (9.0-12.2); PLATELET COUNT 188 10^3/uL (130-400)
[2021-07-15 06:16] LABS: INR 1.1 (0.8-1.4); PROTHROMBIN TIME PATIENT 14.8 SEC (12.2-14.7)
[2021-07-15 06:17] LABS: POTASSIUM 4.2 MMOL/L (3.6-5.0)
[2021-07-15 06:23] LABS: CREATININE SERUM 0.99 MG/DL (0.60-1.30)
[2021-07-15] MEDS ORDERED: HEParin 1000 UNIT/ML (10ML VIAL) FOR BOLUS ONE (07:03)
[2021-07-15] MEDS ORDERED: LIDOCAINE 1% INJ 20 ML 20 ML VIAL ONE (07:03)
[2021-07-15] MEDS ORDERED: HEParin (CATH LAB) 2,000 ML IV ONE (07:04)
[2021-07-15] MEDS: CLOPIDOGREL 75 MG (PLAVIX) TABLET PO SCH (07:43)
[2021-07-15] MEDS: ASPIRIN 81 MG CHEW (CHILDREN'S ASA) PO SCH (07:43)
[2021-07-15] MEDS: cefTRIAXone 1,000 MG/SWFI 10 ML IV PUSH IV SCH ×2 (07:44)
[2021-07-15] MEDS: MICONAZOLE 2% POWDER (DESENEX AF) 90 GM TOP SCH ×2 (07:44→20:14)
--- NOTE | 2021-07-15 09:54 | Physical Therapy Evaluation ---
PT Evaluation-General Medical Diagnosis Admission Date Jul 13, 2021 at 11:45 Medical Diagnosis: Fall, Hx of CVA Onset Date: Jul 03, 2021 Therapy Diagnosis Therapy Diagnosis: Gait deficit, strength deficit Height/Weight Height (Feet): 5 Height (Inches): 6.00 Weight (Pounds): 206 Precautions Precautions/Isolations: Fall Prevention, Standard Precautions Referral Physician: Dr. 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 She reports he needs help with all ADLs except for dressing, feeding himself and toileting. Prior Prior Level of Function SCALE: Activities may be completed with or without assistive devices. 7-Drhhmsrwyk-ssfkhpn completes the activity by him/herself with no assistance from a helper. 5-Set-up or Clean-up Assistance-helper sets up or cleans up; patient completes activity. [place] assists only prior to or following the activity. 4-Supervision or Touching Assistance-helper provides verbal cues and/or touching/steadying and/or contact guard assistance as patient completes activity. Assistance may be provided throughout the activity or intermittently. 3-Partial/Moderate Assistance-helper does LESS THAN HALF the effort. [place] lifts, holds or supports trunk or limbs, but provides less than half the effort. 2-Substantial/Maximal Assistance-helper does MORE THAN HALF the effort. [place] lifts or holds trunk or limbs and provides more than half the effort. 1-Bcfspvixg-sbqolk does ALL the effort. Patient does none of the effort to complete the activity. Or, the assistance of 2 or more helpers is required for the patient to complete the activity. If activity was not attempted, code reason: 7-Patient Refused. 9-Not Applicable-not attempted and the patient did not perform the activity before the current illness, exacerbation or injury. 10-Not Attempted due to Environmental Limitations-(lack of equipment, weather restraints, etc.). 88-Not Attempted due to Medical Conditions or Safety Concerns. Bed Mobility: 6 Transfers (B,C,W/C): 6 Gait: 6 Stairs: 6 Indoor Mobility (Ambulation): Independent Stairs: Independent Has a 4WW at home, but doesn't use as it hurts her back. Suggested adjusting the height to fit her better and she reports son will bring the 4WW in as soon as possible. PT Evaluation-Current Subjective Patient reports pain at 6/10 currently in her back. Reports she is scared to get up as she has fallen three times at home and does not want to fall again. Objective Patient Orientation: Person, Place, Situation Attachments: Oxygen, Baron Catheter ROM/Strength ROM Lower Extremities WFLs bilaterally all planes Strength Lower Extremities Right 4/5 Grossly Left hip flexion 3/5, abduction 3/5, knee extension 3+/5, Knee flexion 3/5 Integumentary/Posture Posture Patient sits with rounded shoulders, mild forward trunk posture, tends to lean to the right minimally and retropulsive. Sensory Sensation Right Lower Extremit: Intact Sensation Left Lower Extremity: Impaired Sensation Lower Extremities Patient reports significant decrease in sensation throughout left LE to light touch Transfers Roll Left to Right (QC): 3 Sit to Lying (QC): 3 Lying to Sitting/Side of Bed(Q: 3 Sit to Stand (QC): 3 Gait Does the Patient Walk?: No and Walking Goal IS indicated Mode of Locomotion: Walk Anticipated Mode of Locomotion: Walk Walk 10 feet (QC): 88 Gait Assistive Device: FWW Wheelchair Training Does the Pt Use a Wheelchair?: No Balance Sitting Static: Fair Sitting Dynamic: Fair Standing Static: Poor Standing Dynamic: Poor Assessment/Needs Patient right sidelying in bed upon PT arrival, agreeable to treatment. Patient performs all observed bed mobility and transfers with min/mod A and verbal cues for performance. Patient was able to sit at the edge of the bed ~ 5 minutes with min A. Patient performed sit to stand x 2 with mod A. Patient unable to initiate stepping at this time for gait due to reports of dizziness. Patient returned to bed with all needs met, nursing notified, call light in reach. Patient scheduled for cardiac cath later today. Rehab Potential: Good PT Short Term Goals Short Term Goals Time Frame: Jul 22, 2021 Roll Left & Right: 5 Sit to lyin Lying to sitting on side of be: 5 Sit to stand: 5 Chair/dty-sh-sosfu transfer: 5 Toilet transfer: 5 Walk 10 feet: 4 Walk 50 feet with two turns: 4 Walk 150 feet: 4 1 step (curb): 4 Picking up objects: 4 Does pt use a wc or scooter: No PT Halfway Goals Bench Assembler Electrical Goals PT Halfway Goals Time Frame: Aug 05, 2021 Roll Left & Right (QC): 6 Sit to Lying (QC): 6 Lying-Sitting on Side/Bed(QC): 6 Sit to Stand (QC): 6 Chair/Jxw-fg-Vncvi Xfer(QC): 6 Toilet Transfer (QC): 6 Car Transfer (QC): 6 Does the Patient Walk: Yes Walk 10 feet (QC): 6 Walk 50ft with 2 Turns (QC): 6 Walk 150 ft (QC): 5 1 Step (curb) (QC): 5 4 Steps (QC): 5 12 Steps (QC): 5 Picking up an Object (QC): 5 PT Plan Problem List Problem List: Activity Tolerance, Functional Strength, Safety, Balance, Gait, Transfer, Bed Mobility, ROM Treatment/Plan Treatment Plan: Continue Plan of Care Treatment Plan: Bed Mobility, Education, Functional Activity Genna, Functional Strength, Group Therapy, Gait, Safety, Therapeutic Exercise, Transfers Treatment Duration: Oct 08, 2021 Frequency: 6 times per week Estimated Hrs Per Day: .25 hour per day Patient and/or Family Agrees t: Yes Safety Risks/Education Patient Education: Gait Training, Transfer Techniques, Safety Issues Teaching Recipient: Patient Teaching Methods: Demonstration, Discussion Response to Teaching: Reinforcement Needed Discharge Recommendations Target Placement Post acute placement recommended Time/GCodes Time In: 838 Time Out: 915 Total Billed Treatment Time: 37 Total Billed Treatment Visit, DEONTE Dong JOHN A PT Jul 15, 2021 09:54
--- NOTE | 2021-07-15 11:12 | Progress Note - Hospitalist ---
Subjective HPI/CC On Admission Date Seen by Provider: Jul 15, 2021 Time Seen by Provider: 10:59 Pt is a 66yoCF with a PMH of CBP and recent CVA who presented to the ER due to fall. She reports that EMS had been to her house multiple times due to falls and was told they wouldn't come back if she fell again and she needed help so deci ded to seek evaluation. She believes she may have passed out but is unsure. She doesn't recall any symptoms prior to this. Her son found her and he was unable to tell her how long she was down or if she had any convulsions. She reports feeling better today. No chest pain, shortness of breath, weakness, fever, cough, SOB. Subjective/Events-last exam Pt reports feeling ok today. Plan for cardiac cath today. Also quite weak so PT to evaluate. Focused Exam Lactate Level 07/13/21 09:56: Lactic Acid Level 3.37*H 07/13/21 14:05: Lactic Acid Level 1.69 Objective Exam Vital Signs Vital Signs Date Time Temp Pulse Resp B/P (MAP) Pulse Ox O2 Delivery O2 Flow Rate FiO2 07/15/21 07:50 78 22 144/73 (96) 96 Nasal Cannula 2.00 07/15/21 04:00 36.1 07/13/21 09:54 96 Capillary Refill : Less Than 3 Seconds General Appearance: No Apparent Distress, Chronically ill, Obese Respiratory: Lungs Clear, No Respiratory Distress Cardiovascular: Regular Rate, Rhythm, No Murmur Neurologic/Psychiatric: Alert, Oriented x3 Results/Procedures Lab Laboratory Tests 07/15/21 05:55 Patient resulted labs reviewed. Assessment/Plan Assessment and Plan Assess & Plan/Chief Complaint NSTEMI troponin 5.6 trended down, plan for cath today Cardiology consulted, appreciate recs Monitor on telemetry Continue DAPT and lovenox, BB UTI UA here unremarkable but was in the middle of outpatient treatment leukocytosis resolved Continue Rocephin, DC azithromycin Recent CVA Debility Denies ER visit on 06/27 CT head last night negative PT consulted, quite weak- IRF eval placed Chronic pain Continue home meds Chronic Diarrhea imodium prn for diarrhea occasionally has constipation as well so docusate prn for that DVT ppx: Lovenox Diagnosis/Problems Diagnosis/Problems (1) NSTEMI (non-ST elevated myocardial infarction) Status: Acute (2) Chronic back pain Qualifiers: Back pain location: low back pain Back pain laterality: unspecified Sciatica presence: unspecified whether sciatica present Qualified Codes: M54.5 - Low back pain; G89.29 - Other chronic pain (3) Chronic diarrhea (4) Fall Status: Acute Qualifiers: Encounter type: initial encounter Qualified Codes: W19.XXXA - Unspecified fall, initial encounter (5) UTI (urinary tract infection) Status: Acute Qualifiers: Urinary tract infection type: acute cystitis Hematuria presence: without hematuria Qualified Codes: N30.00 - Acute cystitis without hematuria NENITA BAIRD MD Jul 15, 2021 11:12
[2021-07-15] MEDS ORDERED: DOCUSATE SODIUM 100 MG (COLACE) CAP PO PRN (11:15)
[2021-07-15] MEDS ORDERED: fentaNYL INJ 100 MCG/2 ML AMP ONE (11:36)
[2021-07-15] MEDS ORDERED: MIDAZOLAM 5 MG/5 ML (VERSED) VIAL ONE (11:36)
[2021-07-15] MEDS: LOPERAMIDE 2 MG (IMODIUM) TABLET PO PRN (11:57)
--- NOTE | 2021-07-15 12:05 | Occupational Therapy Eval ---
OT Evaluation-General/PLF Medical Diagnosis Admission Date Jul 13, 2021 at 11:45 Medical Diagnosis: Fall, Hx of CVA Onset Date: Jul 03, 2021 Therapy Diagnosis Therapy Diagnosis: Impaired adls, iadls, balance, strength, rom Height/Weight Height (Feet): 5 Height (Inches): 6.00 Weight (Pounds): 206 Precautions Precautions/Isolations: Fall Prevention, Standard Precautions Referral Physician: Dr. Marie Referral Reason: Evaluation/Treatment Medical History Pertinent Medical History: CVA Additional Medical History Appendectomy, Gallbladder, Tonsillectomy High Cholesterol, Hypertension Headaches /Migraines, TIA Chronic Back Pain Adrenal Disease Current History Pt presented to the ER due to fall. She reports that EMS had been to her house multiple times due to falls and was told they wouldn't come back if she fell again. She believes she may have passed out but is unsure. She doesn't recall any symptoms prior to this. Her son found her and he was unable to tell her how long she was down or if she had any convulsions. Prior to arrival, she reports being indep with adls and Iadls. She owns a 4ww but was not using it. She lives with her adult son who has autism. she is his primary caregiver and assists with all adls except dressing, feeding, and toileting. She reports that she now only performs sponge bathes due to having holes in her tub floor. She verbalizes having a CVA just a few weeks prior and has had multiple falls since. Reviewed History: Yes Social History Home: Single Level Current Living Status: Children Entry Into Home: Stairs With Railing Steps Into Home: 1 ADL-Prior Level of Function SCALE: Activities may be completed with or without assistive devices. 8-Eimpykxpbd-uizleoz completes the activity by him/herself with no assistance from a helper. 5-Set-up or Clean-up Assistance-helper sets up or cleans up; patient completes activity. [place] assists only prior to or following the activity. 4-Supervision or Touching Assistance-helper provides verbal cues and/or touching/steadying and/or contact guard assistance as patient completes activity. Assistance may be provided throughout the activity or intermittently. 3-Partial/Moderate Assistance-helper does LESS THAN HALF the effort. [place] lifts, holds or supports trunk or limbs, but provides less than half the effort. 2-Substantial/Maximal Assistance-helper does MORE THAN HALF the effort. [place] lifts or holds trunk or limbs and provides more than half the effort. 0-Cfqhhdylm-estpgq does ALL the effort. Patient does none of the effort to complete the activity. Or, the assistance of 2 or more helpers is required for the patient to complete the activity. If activity was not attempted, code reason: 7-Patient Refused. 9-Not Applicable-not attempted and the patient did not perform the activity bef ore the current illness, exacerbation or injury. 10-Not Attempted due to Environmental Limitations-(lack of equipment, weather r estraints, etc.). 88-Not Attempted due to Medical Conditions or Safety Concerns. Self Care: Independent Functional Cognition: Independent Drive Self: Yes OT Current Status Subjective Pt reports pain "all over," does not give numerical value. Agreeable to eval. Appearance Pt left in sidelying with all needs within reach. RN informed. Mental Status/Objective Patient Orientation: Person, Situation Attachments: Baron Catheter, Oxygen, Telemetry Current Glasses/Contacts: Yes Hand Dominance: Right Upper Extremity ROM Impaired, <1/4 AROM ana shoulders. Elbow-wrist WFL Upper Extremity Strength Bilateral: 2/5 shoulder flexion, 3/5 elbow flexion poor corporate law assistant strength ADL-Treatment Lower Body Dressing (QC): 1 On/Off Footwear (QC): 1 Toileting Hygiene (QC): 1 Supine<>Sit: Mod-max a for trunk elevation and lifting LE's back into bed. Intermittent min a required for sitting balance due to being retropulsive and slight list to R. Cues for posture, unable to sustain. Dep to don/doff socks. Pt reports dizziness upon sitting upright. Orthostatic? Pt not safe to stand at this time due to being symptomatic. Per PT note, pt required mod a x2 to stand, unable to take step. At this time, pt would require assist x2 for functional tasks such as clothing management, transfers, and toileting tasks. Pt is scheduled for heart cath later this am. Education OT Patient Education: Correct positioning, Disease process, Modified ADL techniques, Progress toward Goal/Update tx plan, Purpose of tx/functional activities, Reviewed precautions, Rehab process, Safety issues, Transfer techniques Teaching Recipient: Patient Teaching Methods: Demonstration, Discussion Response to Teaching: Verbalize Understanding, Reinforcement Needed OT Snf Goals Snf Goals Time Frame: Aug 08, 2021 Oral Hygiene (QC): 4 Toileting Hygiene (QC): 4 Shower/Bathe Self (QC): 4 Upper Body Dressing (QC): 4 Lower Body Dressing (QC): 4 On/Off Footwear (QC): 4 1=Demonstrate adherence to instructed precautions during ADL tasks. 2=Patient will verbalize/demonstrate understanding of assistive devices/modifications for ADL. 3=Patient will improve strength/tolerance for activity to enable patient to perform ADL's. OT Education/Plan Problem List/Assessment Assessment: Decreased Activ Tolerance, Decreased Safety Aware, Decreased UE Strength, Impaired Bed Mobility, Impaired Coordination, Impaired Funct Balance, Impaired I ADL's, Impaired Self-Care Skills, Restricted Funct UE ROM Discharge Recommendations Plan/Recommendations: Continue POC Therapy Discharge Recommendati: Post Acute OT Equpiment Recommendations-D/C: Parking Ramp Attendant, Sock Aide Comment continue to assess Treatment Plan/Plan of Care Treatment,Training & Education: Yes Patient would benefit from OT for education, treatment and training to promote independence in ADL's, mobility, safety and/or upper extremity function for ADL's. Plan of Care: ADL Retraining, Functional Mobility, Group Exercise/Act as Ind, UE Funct Exercise/Act, UE Neuromus Re-Ed/Coord, W/C Management Training Treatment Duration: Aug 08, 2021 Frequency: 5 times per week Estimated Hrs Per Day: .25 hour per day Agreement: Yes Rehab Potential: Good Time/GCodes Start Time: 11:30 Stop Time: 11:42 Total Time Billed (hr/min): 12 Billed Treatment Time 1 visit, Homa Rodriguez OT Jul 15, 2021 12:04
[2021-07-15] MEDS ORDERED: NS IV 1000 ML 1,000 ML ONE (12:16)
--- NOTE | 2021-07-15 12:43 | Cardiac Procedure Note-CS/ASA ---
Pre-Procedure Note Pre-Op Procedure Note H&P Reviewed The H&P was reviewed, patient examined and no changes noted. Date H&P Reviewed: Jul 15, 2021 Time H&P Reviewed: 12:35 Conscious Sedation Pre-Proced Time 12:35 ASA Score 3 For ASA 3 and 4: Consider anesthesia and medical clearance. Also, for patients with a history of failed moderate sedation consider anesthesia. Airway Lungs Heart ASA score ASA 1: a normal healthy patient ASA 2: a patient with a mild systemic disease (mid diabetes, controlled hypertension, obesity ASA 3: a patient with a severe systemic disease that limits activity (angina, COPD, prior Myocardial infarction) ASA 4: a patient with an incapacitating disease that is a constant threat to life (CHF, renal failure) ASA 5: a moribund patient not expected to survive 24 hrs. (ruptured aneurysm) ASA 6: a declared brain- patient whose organs are being harvested. For emergent operations, add the letter E after the classification Mallampati Classification Grade 2 Sedation Plan Analgesia, Amnesia, Plan communicated to team members, Discussed options with patient/fam, Discussed risks with patient/fam The patient is an appropriate candidate to undergo the planned procedure, sedation, and anesthesia. The patient immediately re-assessed prior to indication. DENICE GARCIA MD FACP FAC CCDS Jul 15, 2021 12:43
--- NOTE | 2021-07-15 13:03 | Progress Note - Cardiology ---
Cardiology SOAP Progress Note Subjective: No new symptoms No cp or palp or shortness of breath Objective: I&O/Vital Signs 07/15/21 07/15/21 07/15/21 07/15/21 04:00 06:36 07:34 07:50 Temp 36.1 Pulse 75 72 78 Resp 18 22 B/P (MAP) 143/67 (92) 144/73 (96) Pulse Ox 93 96 O2 Delivery Room Air Nasal Cannula Nasal Cannula O2 Flow Rate 2.00 2.00 07/15/21 00:00 Intake Total 1210 ml Output Total 625 ml Balance 585 ml Weight (Pounds): 206 Weight (Calculated Kilograms): 93.847974 Constitutional: AAO x 3, well-developed, well-nourished Respiratory: No accessory muscle use, No respiratory distress; chest expansion is symmetric, chest is bilaterally symmetric, lungs clear to auscultation Cardiovascular: regular rate-rhythm; No JVD; S1 and S2, systolic murmur Gastrointestional: tender (RLQ and LLQ discomfort with palpation), soft, audible bowel sounds Extremities: no lower extremity edema bilateral Neurologic/Psychiatric: other (slurred speech; LUE and LLE 4/5) Skin: No rash on exposed areas, No ulcerations on exposed areas Results/Procedures: Labs Laboratory Tests 07/15/21 05:55: White Blood Count 10.0, Red Blood Count 4.08, Hemoglobin 14.1, Hematocrit 43, Mean Corpuscular Volume 106H, Mean Corpuscular Hemoglobin 35H, Mean Corpuscular Hemoglobin Concent 33, Red Cell Distribution Width 14.4, Platelet Count 188, Me an Platelet Volume 10.3, Prothrombin Time 14.8H, INR Comment 1.1, Activated Partial Thromboplast Time 63H, Sodium Level 140, Potassium Level 4.2, Chloride Level 107, Carbon Dioxide Level 24, Anion Gap 9, Blood Urea Nitrogen 17, Creatinine 0.99, Estimat Glomerular Filtration Rate 56, BUN/Creatinine Ratio 17, Glucose Level 87, Calcium Level 9.0 Microbiology 07/13/21 Urine Culture - Final, Complete NO GROWTH 07/13/21 Blood Culture - Preliminary, Resulted No growth Laboratory Tests 07/14/21 05:20 07/15/21 05:55 A/P: Assessment: Elevated troponin, probably NSTEMI due to transient coronary thrombosis (none seen on card cath) - Card Cath on 07/15/21: No significant CAD, LVEDP 14 mmHg, LVEF 60% Syncope - undetermined etiology CVA approx 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 upper and lower extremity weakness with slurred speech and dizziness Mild, bilat carotid art disease on carotid u/s of 07/14/21 Palpitations - undetermined etiology Chronic back pain - chronic opiate use Diarrhea - management per medical services Family h/o CAD/CVA - Mother and father Plan: No distinct cause for syncope found Consider ILR to monitor for arrhythmia Continue DAPT Change Lovenox to DVT prophylaxis dose Management of previous stroke is per Medical services Continue on tele Monitor lab and replace electrolytes as indicated Management of diarrhea is per medical services DENICE GARCIA MD FACP FAC CCDS Jul 15, 2021 13:03
--- NOTE | 2021-07-15 14:40 | Physician Query Clarification ---
Physician Query-General Query to Physician: The medical record reflects the following clinical scenario: The patient, in the setting of History/Risk factors, UTI, Recent hospitalization for CVA Clinical Findings Admission VS/LABS and treatment: UTI with HR 108, RR 20, BP 123/64, SpO2 84% sat on room air T 37.2, WBC 15.5, LA 3.37 Treatment LR 2.5L in ER azithromycin IV, Ceftriaxone Question: Do you agree with the impression of Sepsis/Severe Sepsis per Dr. Luna Rudd ER physician? 1. Yes; will document Sepsis/Severe Sepsis in the Progress Notes 2. No; will continue current documentation in the Progress Notes 3. Other; will document explanation of clinical findings 4. Clinically undetermined; no explanation for clinical findings Please clarify and document your clinical opinion in the Progress Notes and Discharge Summary including the definitive and/or presumptive diagnosis, (suspected or probable), related to the above clinical findings. Please include clinical findings supporting your diagnosis. In responding to this query, please exercise your independent professional judgment. The purpose of this communication is to more accurately reflect the complexity of your patients condition. The fact that a question is asked does not imply that any particular answer is desired or expected. Please remember a lack of response to the above will prompt a phone page by CDI/coding staff Thank you for timely response to this clarification. Tatum Cadena MSN, RN Clinical Tile Mechanic [phone] [email or web address] PHYSICIAN RESPONSE: Based on the clinical findings in the record, please respond to the query above on this document as an addendum. Physician Response: Physician Response 2 If you have questions please contact: Breakfast Server: Ext: Thank you for your time and cooperation. Clinical Tile Mechanic/Breakfast Server This is a permanent part of the medical record TATUM CADENA Jul 15, 2021 14:40 NENITA BAIRD MD Jul 15, 2021 16:01
--- NOTE | 2021-07-15 15:33 | CARDIAC CATHETERIZATION ---
DATE OF SERVICE: CARDIAC CATHETERIZATION REPORT The patient is a 66-year-old lady who had syncope on 07/14/2021. At presentation to the hospital, her troponin was mildly elevated. Acute coronary syndrome was suspected. Cardiac catheterization was recommended. Informed consent was obtained. DESCRIPTION OF PROCEDURE: She was brought to the cardiac catheterization laboratory in a fasting state. Right groin was prepared and draped in the usual sterile fashion. Lidocaine 1% was used for local anesthesia. Modified Seldinger technique was used to advance a 5-Chadian sheath into the right femoral artery, 5-Chadian JL4 catheter was used for left coronary angiography, 5-Chadian JR4 catheter was used for right coronary angiography, 5-Chadian pigtail catheter was used for left heart catheterization and left ventricular angiography. She tolerated the procedure well. Angiography of the right femoral artery was carried out through the sheath. Mynx was used to achieve hemostasis. HEMODYNAMICS: Left ventricular end-diastolic pressure following coronary angiography was 14 mmHg. There is no significant pressure gradient on pullback across the aortic valve. There is no significant pressure gradient across the aortic valve. CORONARY ANGIOGRAPHY: Left main coronary artery is free of significant disease. Left anterior descending and left circumflex artery appears free of significant disease. Right coronary artery is small in caliber. It is codominant with the left circumflex artery. LEFT VENTRICULAR ANGIOGRAPHY: Left ventricular angiography was carried out in the right anterior oblique projection. Global left ventricular systolic function is normal. No regional wall motion abnormalities are seen. Left ventricular ejection fraction approximately 60%. CONCLUSIONS: 1. No angiographically significant coronary artery disease. 2. Normal global left ventricular systolic function with an ejection fraction approximately 60%. 3. Left ventricular end-diastolic pressure is 14 mmHg. DISCUSSION AND RECOMMENDATIONS: Based on results of the study, it appears appropriate to continue a conservative approach. Risk factor modification has been recommended. Job ID: [id number] DocumentID: [id number] Dictated Date: 07/15/2021 12:48:55 Testing Manager Date: 07/15/2021 15:33:33 Dictated By: DENICE GARCIA MD, MA, FACP, FACC,
[2021-07-15] MEDS: ONDANSETRON 4 MG/2 ML (SDV) Z0FRAN IV PRN (20:14)
[2021-07-16 04:00] VITALS: BP 136/71
[2021-07-16] MEDS ORDERED: VITAMIN D2 1.25 MG (50,000 UNITS) CAP PO SCH (06:30)
[2021-07-16 08:00] VITALS: BP 132/68
--- NOTE | 2021-07-16 08:48 | Discharge Inst-Skilled Nursing ---
Discharge Inst-Skilled NF Chief Complaint Pt is a 66yoCF with a PMH of CBP and recent CVA who presented to the ER due to fall. She reports that EMS had been to her house multiple times due to falls and was told they wouldn't come back if she fell again and she needed help so decided to seek evaluation. She believes she may have passed out but is unsure. She doesn't recall any symptoms prior to this. Her son found her and he was unable to tell her how long she was down or if she had any convulsions. She reports feeling better today. No chest pain, shortness of breath, weakness, fever, cough, SOB. Consult/Follow Up/Orders Skilled NF Admit to: [facility] Certification (SNF) I certify that SNF services are required to be given on an inpatient basis because of the above named patient's need for usp care on a continuing basis for the conditions(s) for which he/she was receiving inpatient hospital services prior to his/her transfer to the SNF. [facility] Facility Order: Nursing Services, Pilling Machine Operator-Evaluate & Treat, Physical Therapy-Evaluate & Treat Oxygen Delivery Method: Nasal Cannula Discharge Diet: No Restrictions Resuscitation Status: Full Code New & Resume Previous Orders Nenita Adkins Jul 16, 2021 08:47 NENITA ADKINS MD Jul 16, 2021 08:48
[2021-07-16] MEDS: ENOXAPARIN 40 MG/0.4 ML (LOVENOX) SYR SC SCH (08:50)
[2021-07-16] MEDS: ASPIRIN 81 MG CHEW (CHILDREN'S ASA) PO SCH (08:50)
[2021-07-16] MEDS: CLOPIDOGREL 75 MG (PLAVIX) TABLET PO SCH (08:50)
[2021-07-16] MEDS: cefTRIAXone 1,000 MG/SWFI 10 ML IV PUSH IV SCH ×2 (08:50)
[2021-07-16] MEDS: MICONAZOLE 2% POWDER (DESENEX AF) 90 GM TOP SCH ×2 (08:51→21:34)
--- NOTE | 2021-07-16 09:05 | Progress Note - Cardiology ---
Cardiology SOAP Progress Note Subjective: Lying in bed No c/o groin discomfort No c/o CP, palpitations, syncope or near syncope Objective: I&O/Vital Signs 07/15/21 07/16/21 07/16/21 07/16/21 23:32 01:00 04:00 06:36 Temp 36.8 36.5 Pulse 72 67 73 Resp 18 18 B/P (MAP) 128/61 (83) 136/71 (92) Pulse Ox 96 97 O2 Delivery Nasal Cannula Nasal Cannula Nasal Cannula O2 Flow Rate 2.00 2.00 2.00 07/16/21 08:00 Temp 36.2 Pulse 64 Resp 14 B/P (MAP) 132/68 (89) Pulse Ox 100 O2 Delivery Nasal Cannula O2 Flow Rate 2.00 07/16/21 00:00 Intake Total 100 ml Output Total 340 ml Balance -240 ml Weight (Pounds): 206 Weight (Calculated Kilograms): 93.721160 Side: left Groin site without hematoma: Yes Condition: DP/PT pulses palpable, extremity w/d/p Bruising: mild bruising Constitutional: AAO x 3, well-developed, well-nourished Respiratory: No accessory muscle use, No respiratory distress; chest expansion is symmetric, chest is bilaterally symmetric, lungs clear to auscultation Cardiovascular: regular rate-rhythm; No JVD; S1 and S2, systolic murmur Gastrointestional: No tender; soft, audible bowel sounds Extremities: no lower extremity edema bilateral Neurologic/Psychiatric: other (slurred speech; LUE and LLE 4/5) Skin: No rash on exposed areas, No ulcerations on exposed areas Results/Procedures: Labs Laboratory Tests 07/15/21 14:16: Coronavirus (COVID-19)(PCR) Negative Microbiology 07/13/21 Urine Culture - Final, Complete NO GROWTH 07/13/21 Blood Culture - Preliminary, Resulted No growth Laboratory Tests 07/15/21 05:55 A/P: Assessment: Elevated troponin, probably NSTEMI due to transient coronary thrombosis (none seen on card cath) - Card Cath on 07/15/21: No significant CAD, LVEDP 14 mmHg, LVEF 60% Syncope - undetermined etiology CVA approx 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 upper and lower extremity weakness with slurred speech and dizzin ess - undetermined cause - advise event monitor to eval for possible arrhythmia Mild, bilat carotid art disease on carotid u/s of 07/14/21 Palpitations - undetermined etiology Chronic back pain - chronic opiate use Diarrhea - management per medical services Family h/o CAD/CVA - Mother and father Plan: No distinct cause for syncope found Consider ILR to monitor for arrhythmia - discussed with pt - she would like to have an event monitor Continue DAPT Change Lovenox to DVT prophylaxis dose Management of previous stroke is per Medical services Continue on tele Monitor lab and replace electrolytes as indicated Management of diarrhea is per medical services ESSIE MOROE Jul 16, 2021 09:05
[2021-07-16] MEDS ORDERED: MTP25TSR PO (09:15)
[2021-07-16] MEDS ORDERED: ASPI81TA64 PO (09:15)
--- NOTE | 2021-07-16 09:15 | Discharge Summary ---
Diagnosis/Chief Complaint Date of Admission Jul 13, 2021 at 11:45 Date of Discharge Discharge Date: Jul 16, 2021 Admission Diagnosis NSTEMI Primary Care No,Local Physician Discharge Diagnosis (1) NSTEMI (non-ST elevated myocardial infarction) Status: Acute (2) Chronic back pain (3) Chronic diarrhea (4) Fall Status: Acute (5) UTI (urinary tract infection) Status: Acute Discharge Summary Discharge Physical Exam Allergies: Coded Allergies: morphine (Verified Allergy, Severe, Angioedema, 07/14/21) Tetanus Vaccines and Toxoid (Verified Allergy, Unknown, 04/16/14) Vitals & I&Os Vital Signs Date Time Temp Pulse Resp B/P (MAP) Pulse Ox O2 Delivery O2 Flow Rate FiO2 07/16/21 08:00 36.2 64 14 132/68 (89) 100 Nasal Cannula 2.00 07/13/21 09:54 96 Hospital Course Labs (last 24 hrs) Laboratory Tests 07/15/21 14:16: Coronavirus (COVID-19)(PCR) Negative Microbiology 07/13/21 Urine Culture - Final, Complete NO GROWTH 07/13/21 Blood Culture - Preliminary, Resulted No growth Patient resulted labs reviewed. Discharge Home Medications: Active Scripts Active Reported Aspirin EC (Aspirin) 81 Mg Tablet.dr 243 Mg PO DAILY TAKES 3 (81MG) TABS Vitamin D3 (Cholecalciferol (Vitamin D3)) 1,250 Mcg Capsule 1,250 Mcg PO WED Cephalexin 500 Mg Capsule 500 Mg PO TID FILLED 07-02-2021 #20/ DAY SUPPLY Oxycodone HCl 10 Mg Tablet 10 Mg PO QID PRN Propranolol HCl 10 Mg Tablet 5 Mg PO BID TAKES OF A 10MG TAB Instructions to patient/family Please see electronic discharge instructions given to patient. Problem Qualifiers (1) Chronic back pain: Back pain location: low back pain Back pain laterality: unspecified Sciatica presence: unspecified whether sciatica present Qualified Codes: M54.5 - Low back pain; G89.29 - Other chronic pain (2) Fall: Encounter type: initial encounter Qualified Codes: W19.XXXA - Unspecified fall, initial encounter (3) UTI (urinary tract infection): Urinary tract infection type: acute cystitis Hematuria presence: without hematuria Qualified Codes: N30.00 - Acute cystitis without hematuria NENITA BAIRD MD Jul 16, 2021 09:15
[2021-07-16] MEDS: TAMSULOSIN 0.4 MG (FLOMAX) CAP PO SCH (10:26)
--- NOTE | 2021-07-16 11:57 | Occupational Ther Daily Note ---
OT Current Status-Daily Note Subjective Pt alert, lying in bed. Pt agrees to therapy. Pt c/o back pain though did not rate. Mental Status/Objective Patient Orientation: Person, Place, Time, Situation Attachments: IV, Telemetry ADL-Treatment Pt agrees to ambulated to bathroom to use toilet. Supine to EOB mod A, EOB to supine independent. CGA to ambulate using FWW to bathroom. Toilet transfer porras pervision using FWW. Pt unable to urinate though per clinical judgment pt able to cleanse self after toileting with CGA. After session, pt lying in bed with call light/phone in reach. All needs met in room. Therapy Code Descriptions/Definitions Functional Kings Measure: 0=Not Assessed/NA 4=Minimal Assistance 1=Total Assistance 5=Supervision or Setup 2=Maximal Assistance 6=Modified Kings 3=Moderate Assistance 7=Complete IndependenceSCALE: Activities may be completed with or without assistive devices. 4-Mlnlfhgvny-qidmhrh completes the activity by him/herself with no assistance from a helper. 5-Set-up or Clean-up Assistance-helper sets up or cleans up; patient completes activity. [place] assists only prior to or following the activity. 4-Supervision or Touching Assistance-helper provides verbal cues and/or touching/steadying and/or contact guard assistance as patient completes activity. Assistance may be provided throughout the activity or intermittently. 3-Partial/Moderate Assistance-helper does LESS THAN HALF the effort. [place] lifts, holds or supports trunk or limbs, but provides less than half the effort. 2-Substantial/Maximal Assistance-helper does MORE THAN HALF the effort. [place] lifts or holds trunk or limbs and provides more than half the effort. 4-[place]-isustp does ALL the effort. Patient does none of the effort to complete the activity. Or, the assistance of 2 or more helpers is required for the patient to complete the activity. If activity was not attempted, code reason: 7-Patient Refused. 9-Not Applicable-not attempted and the patient did not perform the activity before the current illness, exacerbation or injury. 10-Not Attempted due to Environmental Limitations-(lack of equipment, weather restraints, etc.). 88-Not Attempted due to Medical Conditions or Safety Concerns. Toileting Hygiene (QC): 4 Toilet Transfer (QC): 4 OT Glass Ribbon Machine Operator Goals Glass Ribbon Machine Operator Goals Time Frame: Aug 08, 2021 Oral Hygiene (QC): 4 Toileting Hygiene (QC): 4 Shower/Bathe Self (QC): 4 Upper Body Dressing (QC): 4 Lower Body Dressing (QC): 4 On/Off Footwear (QC): 4 1=Demonstrate adherence to instructed precautions during ADL tasks. 2=Patient will verbalize/demonstrate understanding of assistive devices/modifications for ADL. 3=Patient will improve strength/tolerance for activity to enable patient to perform ADL's. OT Education/Plan Problem List/Assessment Assessment: Decreased Activ Tolerance, Impaired Self-Care Skills Discharge Recommendations Plan/Recommendations: Continue POC Treatment Plan/Plan of Care Patient would benefit from OT for education, treatment and training to promote independence in ADL's, mobility, safety and/or upper extremity function for ADL's. Plan of Care: ADL Retraining, Functional Mobility, Group Exercise/Act as Ind, UE Funct Exercise/Act, UE Neuromus Re-Ed/Coord, W/C Management Training Treatment Duration: Aug 08, 2021 Frequency: 5 times per week Estimated Hrs Per Day: .25 hour per day Agreement: Yes Rehab Potential: Good Time/GCodes Start Time: 11:20 Stop Time: 11:40 Total Time Billed (hr/min): 20 Billed Treatment Time 1 visit-ADL 1 (20 min) SADA PEÑA Jul 16, 2021 11:57
[2021-07-16 12:00] VITALS: BP 132/70
--- NOTE | 2021-07-16 15:44 | Progress Note - Cardiology ---
Cardiology SOAP Progress Note Subjective: No shortness of breath at rest No cp or palp or syncope or swelling No n/v/d No groin discomfort Objective: I&O/Vital Signs 07/16/21 07/16/21 07/16/21 07/16/21 04:00 06:36 07:00 08:00 Temp 36.5 Pulse 73 76 Resp 18 B/P (MAP) 136/71 (92) Pulse Ox 97 O2 Delivery Nasal Cannula Nasal Cannula Room Air O2 Flow Rate 2.00 2.00 07/16/21 07/16/21 08:00 12:00 Temp 36.2 35.8 Pulse 64 77 Resp 14 18 B/P (MAP) 132/68 (89) 132/70 (90) Pulse Ox 100 99 O2 Delivery Nasal Cannula Nasal Cannula O2 Flow Rate 2.00 2.00 07/16/21 00:00 Intake Total 100 ml Output Total 340 ml Balance -240 ml Weight (Pounds): 206 Weight (Calculated Kilograms): 93.850679 Side: left Groin site without hematoma: Yes Condition: DP/PT pulses palpable, extremity w/d/p Bruising: mild bruising Constitutional: AAO x 3, well-developed, well-nourished Respiratory: No accessory muscle use, No respiratory distress; chest expansion is symmetric, chest is bilaterally symmetric, lungs clear to auscultation Cardiovascular: regular rate-rhythm; No JVD; S1 and S2, systolic murmur Gastrointestional: No tender; soft, audible bowel sounds Extremities: no lower extremity edema bilateral Neurologic/Psychiatric: other (slurred speech; LUE and LLE 4/5) Skin: No rash on exposed areas, No ulcerations on exposed areas Results/Procedures: Labs Microbiology 07/13/21 Urine Culture - Final, Complete NO GROWTH 07/13/21 Blood Culture - Preliminary, Resulted No growth Laboratory Tests 07/15/21 05:55 A/P: Assessment: Elevated troponin, probably NSTEMI due to transient coronary thrombosis (none seen on card cath) - Card Cath on 07/15/21: No significant CAD, LVEDP 14 mmHg, LVEF 60% Syncope - undetermined etiology CVA approx 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 upper and lower extremity weakness with slurred speech and dizziness - undetermined cause - advise event monitor to eval for possible arrhythmia Mild, bilat carotid art disease on carotid u/s of 07/14/21 Palpitations - undetermined etiology Chronic back pain - chronic opiate use Diarrhea - management per medical services Family h/o CAD/CVA - Mother and father Plan: No distinct cause for syncope found Consider ILR to monitor for arrhythmia - discussed with pt - she would like to have an event monitor Continue DAPT Change Lovenox to DVT prophylaxis dose Management of previous stroke is per Medical services Continue on tele Monitor lab and replace electrolytes as indicated Management of diarrhea is per medical services DENICE GARCIA MD FACP FAC CCDS Jul 16, 2021 15:44
--- NOTE | 2021-07-16 15:52 | Progress Note - Cardiology ---
Cardiology SOAP Progress Note Subjective: No shortness of breath at rest No cp or palp or syncope or swelling No n/v/d No groin discomfor Objective: I&O/Vital Signs 07/16/21 07/16/21 07/16/21 07/16/21 04:00 06:36 07:00 08:00 Temp 36.5 Pulse 73 76 Resp 18 B/P (MAP) 136/71 (92) Pulse Ox 97 O2 Delivery Nasal Cannula Nasal Cannula Room Air O2 Flow Rate 2.00 2.00 07/16/21 07/16/21 08:00 12:00 Temp 36.2 35.8 Pulse 64 77 Resp 14 18 B/P (MAP) 132/68 (89) 132/70 (90) Pulse Ox 100 99 O2 Delivery Nasal Cannula Nasal Cannula O2 Flow Rate 2.00 2.00 07/16/21 00:00 Intake Total 100 ml Output Total 340 ml Balance -240 ml Weight (Pounds): 206 Weight (Calculated Kilograms): 93.191467 Side: left Groin site without hematoma: Yes Condition: DP/PT pulses palpable, extremity w/d/p Bruising: mild bruising Constitutional: AAO x 3, well-developed, well-nourished Respiratory: No accessory muscle use, No respiratory distress; chest expansion is symmetric, chest is bilaterally symmetric, lungs clear to auscultation Cardiovascular: regular rate-rhythm; No JVD; S1 and S2, systolic murmur Gastrointestional: No tender; soft, audible bowel sounds Extremities: no lower extremity edema bilateral Neurologic/Psychiatric: other (slurred speech; LUE and LLE 4/5) Skin: No rash on exposed areas, No ulcerations on exposed areas Results/Procedures: Labs Microbiology 07/13/21 Urine Culture - Final, Complete NO GROWTH 07/13/21 Blood Culture - Preliminary, Resulted No growth Laboratory Tests 07/15/21 05:55 A/P: Assessment: Elevated troponin, probably NSTEMI due to transient coronary thrombosis (none seen on card cath) - Card Cath on 07/15/21: No significant CAD, LVEDP 14 mmHg, LVEF 60% Syncope - undetermined etiology CVA approx 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 upper and lower extremity weakness with slurred speech and dizziness - undetermined cause - advise event monitor to eval for possible arrhythmia Mild, bilat carotid art disease on carotid u/s of 07/14/21 Palpitations - undetermined etiology Chronic back pain - chronic opiate use Diarrhea - management per medical services Family h/o CAD/CVA - Mother and father Plan: No distinct cause for syncope found Consider ILR to monitor for arrhythmia - discussed with pt - she would like to have an event monitor Continue DAPT Change Lovenox to DVT prophylaxis dose Management of previous stroke is per Medical services Continue on tele Monitor lab and replace electrolytes as indicated Management of diarrhea is per medical services DENICE GARCIA MD FACP FAC CCDS Jul 16, 2021 15:52
--- NOTE | 2021-07-16 16:03 | Physical Therapy Daily Note ---
PT Daily Note-Current Subjective Pt laying Supine in bed upon arrival. Pt agrees to PT. Pain Numeric Pain Scale: 8 Location: Lower Location Body Site: Back Pain Description: Ache Mental Status Patient Orientation: Person, Place, Situation Transfers SCALE: Activities may be completed with or without assistive devices. 7-Qsitgcdzzc-hgcoohz completes the activity by him/herself with no assistance from a helper. 5-Set-up or Clean-up Assistance-helper sets up or cleans up; patient completes activity. [place] assists only prior to or following the activity. 4-Supervision or Touching Assistance-helper provides verbal cues and/or touching/steadying and/or contact guard assistance as patient completes activity. Assistance may be provided throughout the activity or intermittently. 3-Partial/Moderate Assistance-helper does LESS THAN HALF the effort. [place] lifts, holds or supports trunk or limbs, but provides less than half the effort. 2-Substantial/Maximal Assistance-helper does MORE THAN HALF the effort. [place] lifts or holds trunk or limbs and provides more than half the effort. 5-Qzhijmsuq-wcfyzv does ALL the effort. Patient does none of the effort to complete the activity. Or, the assistance of 2 or more helpers is required for the patient to complete the activity. If activity was not attempted, code reason: 7-Patient Refused. 9-Not Applicable-not attempted and the patient did not perform the activity be fore the current illness, exacerbation or injury. 10-Not Attempted due to Environmental Limitations-(lack of equipment, weather restraints, etc.). 88-Not Attempted due to Medical Conditions or Safety Concerns. Exercises Supine Ex: Ankle pumps, Quad Set, Glut sets, Heel Slides, Straight leg raise, Hip abd/add Supine Reps: 15 Treatments Pt declines need for use of BR. Pt completes Supine Ex in bed. Pt reports back pain & R UE pain w/movement. Pt resting at end of tx with all needs met, call light in hand. Assessment Current Status: Fair Progress Pt is improving w/strength and mobility. PT Short Term Goals Short Term Goals Time Frame: Jul 22, 2021 Roll Left & Right: 5 Sit to lyin Lying to sitting on side of be: 5 Sit to stand: 5 Chair/agl-mh-ukuga transfer: 5 Toilet transfer: 5 Walk 10 feet: 4 Walk 50 feet with two turns: 4 Walk 150 feet: 4 1 step (curb): 4 Picking up objects: 4 Does pt use a wc or scooter: No PT Pigment Weigher Goals Long-Term Goals PT Pigment Weigher Goals Time Frame: Aug 05, 2021 Roll Left & Right (QC): 6 Sit to Lying (QC): 6 Lying-Sitting on Side/Bed(QC): 6 Sit to Stand (QC): 6 Chair/Zir-zx-Obdxe Xfer(QC): 6 Toilet Transfer (QC): 6 Car Transfer (QC): 6 Does the Patient Walk: Yes Walk 10 feet (QC): 6 Walk 50ft with 2 Turns (QC): 6 Walk 150 ft (QC): 5 1 Step (curb) (QC): 5 4 Steps (QC): 5 12 Steps (QC): 5 Picking up an Object (QC): 5 PT Plan Problem List Problem List: Activity Tolerance Treatment/Plan Treatment Plan: Continue Plan of Care Treatment Plan: Bed Mobility, Education, Functional Activity Genna, Functional Strength, Group Therapy, Gait, Safety, Therapeutic Exercise, Transfers Treatment Duration: Oct 08, 2021 Frequency: 6 times per week Estimated Hrs Per Day: .25 hour per day Patient and/or Family Agrees t: Yes Time/GCodes Time In: 1505 Time Out: 1525 Total Billed Treatment Time: 20 Total Billed Treatment 1, FA (20m) CATHY WEST PTA Jul 16, 2021 16:03
[2021-07-16 16:11] VITALS: BP 130/67
[2021-07-16 19:02] VITALS: BP 128/66
[2021-07-16 21:57] VITALS: BP 113/69
[2021-07-16] MEDS: ACETAMINOPHEN 325 MG TABLET PO PRN (23:55)
[2021-07-17 00:21] VITALS: BP 162/80
[2021-07-17 00:24] VITALS: BP 141/71
[2021-07-17 05:03] VITALS: BP 131/68
[2021-07-17 08:00] VITALS: BP 135/90
[2021-07-17] MEDS: LOPERAMIDE 2 MG (IMODIUM) TABLET PO PRN (08:10)
[2021-07-17] MEDS: CLOPIDOGREL 75 MG (PLAVIX) TABLET PO SCH (08:11)
[2021-07-17] MEDS: cefTRIAXone 1,000 MG/SWFI 10 ML IV PUSH IV SCH ×2 (08:11)
[2021-07-17] MEDS: TAMSULOSIN 0.4 MG (FLOMAX) CAP PO SCH (08:11)
[2021-07-17] MEDS: ENOXAPARIN 40 MG/0.4 ML (LOVENOX) SYR SC SCH (08:11)
[2021-07-17] MEDS: ASPIRIN 81 MG CHEW (CHILDREN'S ASA) PO SCH (08:11)
[2021-07-17] MEDS: MICONAZOLE 2% POWDER (DESENEX AF) 90 GM TOP SCH (08:12)
--- NOTE | 2021-07-17 09:22 | Physical Therapy Daily Note ---
PT Daily Note-Current Subjective Patient states, "I going home today no matter what." Agrees to PT. Mental Status Patient Orientation: Normal For Age Transfers SCALE: Activities may be completed with or without assistive devices. 5-Kofvckcuvt-pfuiuwc completes the activity by him/herself with no assistance from a helper. 5-Set-up or Clean-up Assistance-helper sets up or cleans up; patient completes activity. [place] assists only prior to or following the activity. 4-Supervision or Touching Assistance-helper provides verbal cues and/or touching/steadying and/or contact guard assistance as patient completes activity. Assistance may be provided throughout the activity or intermittently. 3-Partial/Moderate Assistance-helper does LESS THAN HALF the effort. [place] lifts, holds or supports trunk or limbs, but provides less than half the effort. 2-Substantial/Maximal Assistance-helper does MORE THAN HALF the effort. [place] lifts or holds trunk or limbs and provides more than half the effort. 3-Onzegzviz-wfkxeh does ALL the effort. Patient does none of the effort to complete the activity. Or, the assistance of 2 or more helpers is required for the patient to complete the activity. If activity was not attempted, code reason: 7-Patient Refused. 9-Not Applicable-not attempted and the patient did not perform the activity before the current illness, exacerbation or injury. 10-Not Attempted due to Environmental Limitations-(lack of equipment, weather restraints, etc.). 88-Not Attempted due to Medical Conditions or Safety Concerns. Lying to Sitting/Side of Bed(Q: 3 Sit to Stand (QC): 4 Chair/Ynm-ha-Iijyv Xfer(QC): 4 Toilet Transfer (QC): 4 Gait Training Does the Patient Walk?: Yes Distance: 200' Walk 10 feet (QC): 4 Walk 50 ft with 2 Turns(QC): 4 Walk 150 ft (QC): 4 Gait Assistive Device: FWW trunk flexed posture with FWW use Assessment Patient did toilet self independently. Increase activity as patient tolerates. PT Short Term Goals Short Term Goals Time Frame: Jul 22, 2021 Roll Left & Right: 5 Sit to lyin Lying to sitting on side of be: 5 Sit to stand: 5 Chair/hzq-nh-gksmp transfer: 5 Toilet transfer: 5 Walk 10 feet: 4 Walk 50 feet with two turns: 4 Walk 150 feet: 4 1 step (curb): 4 Picking up objects: 4 Does pt use a wc or scooter: No PT [facility] Goals [facility] Goals PT Gis Specialist Goals Time Frame: Aug 05, 2021 Roll Left & Right (QC): 6 Sit to Lying (QC): 6 Lying-Sitting on Side/Bed(QC): 6 Sit to Stand (QC): 6 Chair/Syk-ap-Fejph Xfer(QC): 6 Toilet Transfer (QC): 6 Car Transfer (QC): 6 Does the Patient Walk: Yes Walk 10 feet (QC): 6 Walk 50ft with 2 Turns (QC): 6 Walk 150 ft (QC): 5 1 Step (curb) (QC): 5 4 Steps (QC): 5 12 Steps (QC): 5 Picking up an Object (QC): 5 PT Plan Treatment/Plan Treatment Plan: Continue Plan of Care Treatment Plan: Bed Mobility, Education, Functional Activity Genna, Functional Strength, Group Therapy, Gait, Safety, Therapeutic Exercise, Transfers Treatment Duration: Oct 08, 2021 Frequency: 6 times per week Estimated Hrs Per Day: .25 hour per day Patient and/or Family Agrees t: Yes Time/GCodes Time In: 725 Time Out: 745 Total Billed Treatment Time: 20 Total Billed Treatment 1 visit FA 20 min JUSTINO TORRES PT Jul 17, 2021 09:22
--- NOTE | 2021-07-17 10:30 | Occupational Ther Daily Note ---
OT Current Status-Daily Note Subjective Pt alert, lying in bed. Pt agrees to therapy. No c/o pain. Mental Status/Objective Patient Orientation: Person, Place, Time, Situation ADL-Treatment Pt agrees to complete oral care and toileting. Min A for supine to EOB, EOB to supine independent. CGA for safety to ambulate to sink and completed oral care with SBA for safety while standing at sink. Pt then transferred to toilet with SBA and complete toileting with SBA. After therapy, pt lying in bed with call light/phone in reach. All needs met in room. Therapy Code Descriptions/Definitions Functional [place] Measure: 0=Not Assessed/NA 4=Minimal Assistance 1=Total Assistance 5=Supervision or Setup 2=Maximal Assistance 6=Modified [place] 3=Moderate Assistance 7=Complete IndependenceSCALE: Activities may be completed with or without assistive devices. 1-Qbymwtjfzm-tytqfue completes the activity by him/herself with no assistance from a helper. 5-Set-up or Clean-up Assistance-helper sets up or cleans up; patient completes activity. [place] assists only prior to or following the activity. 4-Supervision or Touching Assistance-helper provides verbal cues and/or touching/steadying and/or contact guard assistance as patient completes activity. Assistance may be provided throughout the activity or intermittently. 3-Partial/Moderate Assistance-helper does LESS THAN HALF the effort. [place] lifts, holds or supports trunk or limbs, but provides less than half the effort. 2-Substantial/Maximal Assistance-helper does MORE THAN HALF the effort. [place] lifts or holds trunk or limbs and provides more than half the effort. 0-Ihknegsva-reaniu does ALL the effort. Patient does none of the effort to complete the activity. Or, the assistance of 2 or more helpers is required for the patient to complete the activity. If activity was not attempted, code reason: 7-Patient Refused. 9-Not Applicable-not attempted and the patient did not perform the activity b efore the current illness, exacerbation or injury. 10-Not Attempted due to Environmental Limitations-(lack of equipment, weather restraints, etc.). 88-Not Attempted due to Medical Conditions or Safety Concerns. Eating (QC): 6 (Per clinical judgment.) Oral Hygiene (QC): 4 (SBA while standing at sink.) Toileting Hygiene (QC): 4 (SBA) Toilet Transfer (QC): 4 (SBA) OT Nursing Home Goals Nursing Home Goals Time Frame: Aug 08, 2021 Oral Hygiene (QC): 4 Toileting Hygiene (QC): 4 Shower/Bathe Self (QC): 4 Upper Body Dressing (QC): 4 Lower Body Dressing (QC): 4 On/Off Footwear (QC): 4 1=Demonstrate adherence to instructed precautions during ADL tasks. 2=Patient will verbalize/demonstrate understanding of assistive devices/modifications for ADL. 3=Patient will improve strength/tolerance for activity to enable patient to perform ADL's. OT Education/Plan Problem List/Assessment Assessment: Decreased Activ Tolerance, Decreased Safety Aware, Impaired Self- Care Skills Discharge Recommendations Plan/Recommendations: Continue POC Treatment Plan/Plan of Care Patient would benefit from OT for education, treatment and training to promote independence in ADL's, mobility, safety and/or upper extremity function for ADL's. Plan of Care: ADL Retraining, Functional Mobility, Group Exercise/Act as Ind, UE Funct Exercise/Act, UE Neuromus Re-Ed/Coord, W/C Management Training Treatment Duration: Aug 08, 2021 Frequency: 5 times per week Estimated Hrs Per Day: .25 hour per day Agreement: Yes Rehab Potential: Good Time/GCodes Start Time: 10:07 Stop Time: 10:30 Total Time Billed (hr/min): 23 Billed Treatment Time 1 visit-ADL 2 (23 min) SADA PEÑA Jul 17, 2021 10:30
--- NOTE | 2021-07-17 10:39 | Progress Note - Cardiology ---
Cardiology SOAP Progress Note Subjective: No recurrence of syncope No cp or palp or shortness of breath No n/v/d Objective: I&O/Vital Signs 07/17/21 07/17/21 07/17/21 07/17/21 00:00 00:24 01:00 04:00 Temp 36.6 36.8 Pulse 103 78 B/P (MAP) 141/71 (94) O2 Delivery Room Air 07/17/21 07/17/21 07/17/21 07/17/21 05:03 07:00 08:00 08:00 Temp 35.8 Pulse 86 73 94 Resp 18 B/P (MAP) 131/68 (89) 135/90 (105) Pulse Ox 93 95 O2 Delivery Room Air Room Air Room Air 07/16/21 23:59 Intake Total 740 ml Output Total 450 ml Balance 290 ml Weight (Pounds): 206 Weight (Calculated Kilograms): 93.895602 Side: left Groin site without hematoma: Yes Condition: DP/PT pulses palpable, extremity w/d/p Bruising: mild bruising Constitutional: AAO x 3, well-developed, well-nourished Respiratory: No accessory muscle use, No respiratory distress; chest expansion is symmetric, chest is bilaterally symmetric, lungs clear to auscultation Cardiovascular: regular rate-rhythm; No JVD; S1 and S2, systolic murmur Gastrointestional: No tender; soft, audible bowel sounds Extremities: no lower extremity edema bilateral Neurologic/Psychiatric: other (slurred speech; LUE and LLE 4/5) Skin: No rash on exposed areas, No ulcerations on exposed areas Results/Procedures: Labs Microbiology 07/13/21 Urine Culture - Final, Complete NO GROWTH 07/13/21 Blood Culture - Preliminary, Resulted No growth A/P: Assessment: Elevated troponin, probably NSTEMI due to transient coronary thrombosis (none seen on card cath) - Card Cath on 07/15/21: No significant CAD, LVEDP 14 mmHg, LVEF 60% Syncope - undetermined etiology CVA approx 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 upper and lower extremity weakness with slurred speech and dizziness - undetermined cause - advise event monitor to eval for possible arrhythmia Mild, bilat carotid art disease on carotid u/s of 07/14/21 Palpitations - undetermined etiology Chronic back pain - chronic opiate use Diarrhea - management per medical services Family h/o CAD/CVA - Mother and father Plan: No distinct cause for syncope found Consider ILR to monitor for arrhythmia - discussed with pt - she would like to have an event monitor Continue DAPT Change Lovenox to DVT prophylaxis dose Management of previous stroke is per Medical services Continue on tele Monitor lab and replace electrolytes as indicated Management of diarrhea is per medical services DENICE GARCIA MD FACP FAC CCDS Jul 17, 2021 10:39
[2021-07-17] MEDS ORDERED: OXYC10TA7 PO (11:29)
[2021-07-17 11:54] VITALS: BP 127/69
--- NOTE | 2021-07-17 14:37 | Progress Note - Hospitalist ---
Subjective HPI/CC On Admission Date Seen by Provider: Jul 17, 2021 Time Seen by Provider: 08:00 Pt is a 66yoCF with a PMH of CBP and recent CVA who presented to the ER due to fall. She reports that EMS had been to her house multiple times due to falls and was told they wouldn't come back if she fell again and she needed help so decided to seek evaluation. She believes she may have passed out but is unsure. She doesn't recall any symptoms prior to this. Her son found her and he was unable to tell her how long she was down or if she had any convulsions. She reports feeling better today. No chest pain, shortness of breath, weakness, fever, cough, SOB. Subjective/Events-last exam Pt reports doing well. Was unable to DC yesterday as insurance approvla for SNF did not come through. Objective Exam Vital Signs Vital Signs Date Time Temp Pulse Resp B/P (MAP) Pulse Ox O2 Delivery O2 Flow Rate FiO2 07/17/21 13:35 07/17/21 11:54 36.5 82 18 94 Room Air 07/16/21 16:11 2.00 07/13/21 09:54 96 Capillary Refill : Less Than 3 Seconds General Appearance: No Apparent Distress, Chronically ill, Obese Respiratory: Lungs Clear, No Respiratory Distress Cardiovascular: Regular Rate, Rhythm, No Murmur Neurologic/Psychiatric: Alert, Oriented x3 Results/Procedures Lab Patient resulted labs reviewed. Assessment/Plan Assessment and Plan Assess & Plan/Chief Complaint NSTEMI Had clean cardiac cath Cardiology consulted, appreciate recs Monitor on telemetry Continue DAPT and lovenox, BB UTI UA here unremarkable but was in the middle of outpatient treatment leukocytosis resolved Completed rocephin and urine culture with no growth Recent CVA Debility Denies ER visit on 06/27 CT head last night negative SNF placement today Chronic pain Continue home meds Chronic Diarrhea imodium prn for diarrhea occasionally has constipation as well so docusate prn for that DVT ppx: Lovenox Diagnosis/Problems Diagnosis/Problems (1) NSTEMI (non-ST elevated myocardial infarction) Status: Acute (2) Chronic back pain Qualifiers: Back pain location: low back pain Back pain laterality: unspecified Sciatica presence: unspecified whether sciatica present Qualified Codes: M 54.5 - Low back pain; G89.29 - Other chronic pain (3) Chronic diarrhea (4) Fall Status: Acute Qualifiers: Encounter type: initial encounter Qualified Codes: W19.XXXA - Unspecified fall, initial encounter (5) UTI (urinary tract infection) Status: Acute Qualifiers: Urinary tract infection type: acute cystitis Hematuria presence: without hematuria Qualified Codes: N30.00 - Acute cystitis without hematuria NENITA BAIRD MD Jul 17, 2021 14:37
== END 2021-07-17 13:36 | DRG 281 ==
LOC: EDUNIT# 09:46 → ER 09:50 → CSD 11:45
PROVIDERS: ADMIT Internal Medicine; ATTEND Internal Medicine
PROC: 4A023N7 Measurement of Cardiac Sampling and Pressure, Left Heart, Percutaneous Approach (ICD-10-PCS; principal; 2021-07-15)
PROC: B2111ZZ Fluoroscopy of Multiple Coronary Arteries using Low Osmolar Contrast (ICD-10-PCS; 2021-07-15)
PROC: B2151ZZ Fluoroscopy of Left Heart using Low Osmolar Contrast (ICD-10-PCS; 2021-07-15)
DX: I21.4 Non-ST elevation (NSTEMI) myocardial infarction (principal); N30.00 Acute cystitis without hematuria; I69.354 Hemiplegia and hemiparesis following cerebral infarction affecting left non-dominant side; Z68.41 Body mass index [BMI] 40.0-44.9, adult; I10 Essential (primary) hypertension; E78.00 Pure hypercholesterolemia, unspecified; E66.01 Morbid (severe) obesity due to excess calories; M54.9 Dorsalgia, unspecified; G89.29 Other chronic pain; R00.2 Palpitations; I69.328 Other speech and language deficits following cerebral infarction; I69.398 Other sequelae of cerebral infarction; R29.6 Repeated falls; K52.9 Noninfective gastroenteritis and colitis, unspecified; Z87.891 Personal history of nicotine dependence; R55 Syncope and collapse; I65.23 Occlusion and stenosis of bilateral carotid arteries; Z20.822 Contact with and (suspected) exposure to COVID-19; Z82.49 Family history of ischemic heart disease and other diseases of the circulatory system; Z88.7 Allergy status to serum and vaccine; Z79.891 Long term (current) use of opiate analgesic; Z79.899 Other long term (current) drug therapy; W19.XXXA Unspecified fall, initial encounter
CPT/HCPCS: 36415; 51702; 70450; 71045; 72125; 80048; 80053; 80061; 80320; 81000; 82805; 83605; 83880; 84145; 84484; 85007; 85025; 85027; 85610; 85730; 87040; 87088; 87635; 87636; 93005; 93458; 93880

== ENCOUNTER 2021-07-17 14:09 | Outpatient (RCR) | payer MEDICARE ==
[~2021-07-17 14:09] MED LIST changes: +ASPI-1238 PO; +ASPI81TA64 PO; +CEPH500C PO; +CHOL500049 PO; +MTP25TSR PO; +OXYC10TA7 PO; +PROP10TA8 PO
== END 2021-10-10 | disposition home or self-care (01) ==
LOC: CARD 14:09
PROVIDERS: ATTEND Nurse Practitioner Family
DX: I63.9 Cerebral infarction, unspecified (principal); R07.9 Chest pain, unspecified
CPT/HCPCS: 93270